=== PATIENT | female | born 1990 | race Caucasian/White ===

== ENCOUNTER 2016-11-24 00:42 | Emergency (ER) | payer SELFPAY ==
[2016-11-24 00:56] VITALS: BP 126/72
[2016-11-24] MEDS ORDERED: Ketorolac 60 MG/2 ML SDV IM ONE (01:00)
[2016-11-24] MEDS ORDERED: traMADol 50 MG Tab PO ONE (01:02)
--- NOTE | 2016-11-25 06:53 | ER ---
DATE SEEN: 11/24/2016 REASON FOR VISIT: Pain in foot. HISTORY OF PRESENT ILLNESS: A 26-year-old female with pain in the left foot for several months. She had a small fracture there. She was told to wear brace, but has not been wearing it. She was tapping today and felt a sharp pain, and pain is worse associated with numbness of the toes. REVIEW OF SYSTEMS: No fever. ALLERGIES: Reviewed. PHYSICAL EXAMINATION: GENERAL: Pleasant. VITAL SIGNS: Afebrile and normotensive. EXTREMITIES: Left foot, no obvious swelling, but there is exquisite and tenderness to palpation of the metatarsals, especially the second and third on the left side. Peripheral pulses are present. IMPRESSION: Metatarsalgia. PLAN: 1. Ketorolac 60 mg IM. 2. Toradol 50 mg t.i.d. p.r.n. 3. Advised to come to the office this week. Elevate and ice it. Return to the ED with any worsening of symptoms. /[id number] GERSON/MAURICE
== END 2016-11-24 01:20 | disposition home or self-care (01) ==
LOC: FB.ED 00:42
DX: M77.42 Metatarsalgia, left foot (principal)
CPT/HCPCS: 96372; 99282; A9270; J1885; 99283

== ENCOUNTER 2017-08-05 00:06 | Emergency (ER) | payer SELFPAY ==
--- NOTE | 2017-08-05 00:26 | EDM.PDOC ---
ED HPI GENERAL MEDICAL PROBLEM - General Stated Complaint: STOMACH PAIN/ Time Seen by Provider: 08/05/17 00:10 Source of Information: Reports: Patient History Limitations: Reports: Language Barrier - History of Present Illness INITIAL COMMENTS - FREE TEXT/NARRATIVE: 27 y.o.w.f came with her friend to the ed due to mid upper abd. pain. pt is 6 weeks . Pain started a few hours after eating. No N/N/D or any other acute medical issue. BP 122/77 pulse 78 RR 16 Pulse ox 99% on RA Temp 36.6 Onset: Today Onset Date: 08/04/17 Onset Time: 18:00 Duration: Hour(s):, Intermittent, Waxing/Waning Location: Reports: Abdomen Quality: Reports: Ache, Burning Severity: Moderate Improves with: Reports: Eating Worsens with: Reports: Rest Associated Symptoms: Reports: Other () mid epigastric Pain Score (Numeric/FACES): 10 - Related Data Allergies Allergy/AdvReac Type Severity Reaction Status Date / Time No Known Allergies Allergy Verified 08/05/17 01:00 Home Meds: Home Meds NK [No Known Home Meds] 11/24/16 [History] Past Medical History - Past Health History Medical/Surgical History: Denies 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: - Past Surgical History Female Surgical History: Reports: Section Social & Family History - Tobacco Use Smoking Status *Q: Never Smoker Second Hand Smoke Exposure: No - Caffeine Use Caffeine Use: Reports: Soda - Alcohol Use Days Per Week of Alcohol Use: 0 - Recreational Drug Use Recreational Drug Use: No ED ROS GENERAL - Review of Systems Review Of Systems: See Below Constitutional: Reports: No Symptoms HEENT: Reports: No Symptoms Respiratory: Reports: No Symptoms Cardiovascular: Reports: No Symptoms Endocrine: Reports: No Symptoms GI/Abdominal: Reports: Abdominal Pain : Reports: No Symptoms Musculoskeletal: Reports: No Symptoms Skin: Reports: No Symptoms Neurological: Reports: No Symptoms Psychiatric: Reports: No Symptoms Hematologic/Lymphatic: Reports: No Symptoms Immunologic: Reports: No Symptoms ED EXAM, GI/ABD - Physical Exam Exam: See Below Exam Limited By: Language Barrier General Appearance: Alert, WD/WN, No Apparent Distress Eyes: Bilateral: Normal Appearance Ears: Normal External Exam Nose: Normal Inspection Throat/Mouth: Normal Inspection, Normal Lips, Normal Teeth Head: Atraumatic, Normocephalic Neck: Normal Inspection, Supple, Non-Tender, Full Range of Motion Respiratory/Chest: No Respiratory Distress, Lungs Clear, Normal Breath Sounds, No Accessory Muscle Use, Chest Non-Tender Cardiovascular: Normal Peripheral Pulses, Regular Rate, Rhythm, No Edema, No Gallop, No JVD, No Murmur GI/Abdominal Exam: Normal Bowel Sounds, Soft, No Organomegaly, Tender ( epigastric) (Female) Exam: Deferred Rectal (Female) Exam: Deferred Back Exam: Normal Inspection, Full Range of Motion Extremities: Normal Inspection, Normal Range of Motion, Non-Tender, No Pedal Edema Neurological: Alert, Oriented, CN II-XII Intact, Normal Cognition, Normal Gait Psychiatric: Normal Affect, Normal Mood Skin Exam: Warm, Dry, Intact, Normal Color, No Rash Lymphatic: No Adenopathy Course - Vital Signs Text/Narrative:: 27 y.o.w.f came with her friend to the ed due to mid upper abd. pain. pt is 6 weeks . Pain started a few hours after eating. No N/N/D or any other acute medical issue. BP 122/77 pulse 78 RR 16 Pulse ox 99% on RA Temp 36.6 PE: Mid upper abd. discomfort to deep palp Impression: as be HPI, epigastric pain Tx: Zofran, Maalox and GI cocktain Reexam: Improved Plan: D/C with instructions. Last Recorded V/S: Last Vital Signs Temp 37.1 C 08/05/17 01:33 Pulse 88 08/05/17 01:33 Resp 17 08/05/17 01:33 BP 118/70 08/05/17 01:33 Pulse Ox 100 08/05/17 01:33 - Orders/Labs/Meds Meds: Medications Discontinued Medications Generic Name Dose Route Start Last Admin Trade Name Freq PRN Reason Stop Dose Admin Al Hydroxide/Mg Hydroxide 30 ml 08/05/17 00:25 08/05/17 00:49 Mag-Al Susp PO 08/05/17 00:26 30 ml ONETIME STA Administration Al Hydroxide/Mg Hydroxide 15 0 ml 08/05/17 01:20 08/05/17 01:23 ml/ Lidocaine HCl 15 ml PO 08/05/17 01:21 15 ml ONETIME STA Administration Ondansetron HCl 4 mg 08/05/17 00:25 08/05/17 00:49 Zofran Odt PO 08/05/17 00:26 4 mg ONETIME STA Administration Departure - Departure Time of Disposition: 01:21 Disposition: Home, Self-Care 01 Condition: Good Clinical Impression: Qualifiers: Weeks of gestation: less than 8 weeks Qualified Code(s): Z3A.01 - Less than 8 weeks gestation of Gastritis Qualifiers: Gastritis type: unspecified gastritis Chronicity: acute - Discharge Information Instructions: Gastritis, Adult, [id number] Referrals: Elan Arteaga MD [Primary Care Provider] - Forms: ED Department Discharge Additional Instructions: Please take Maalox for gastritis/esophagitis, please f/u with your PMD. come back if your symptoms get worse acutely.
[2017-08-05] MEDS: Ondansetron 4 MG Tab.DIS PO STA (00:49)
[2017-08-05] MEDS: Aluminum Hydroxide/Magnesium Hydroxide Susp 30 ML Cup PO STA (00:49)
[2017-08-05] MEDS: Alum Hydroxide/Mag Hydroxide 15 ML, Lidocaine 2% 15 ML PO STA ×2 (01:23)
[2017-08-05 01:34] VITALS: BP 118/70
== END 2017-08-05 01:34 | disposition home or self-care (01) ==
LOC: FB.ED 00:06
DX: O99.611 Diseases of the digestive system complicating pregnancy, first trimester (principal); K29.70 Gastritis, unspecified, without bleeding; Z3A.01 Less than 8 weeks gestation of pregnancy
CPT/HCPCS: 99283; A9270

== ENCOUNTER 2017-09-10 22:07 | Emergency (ER) | payer MEDICAID ==
[2017-09-10] MEDS ORDERED: Ondansetron 8 MG Tab.DIS PO ONE (22:57)
[2017-09-10] MEDS ORDERED: Sodium Chloride 0.9% 1,000 ML IV ONE (23:10)
[2017-09-10] MEDS ORDERED: Ketorolac 30 MG/ML SDV IVPUSH ONE (23:10)
[2017-09-10] MEDS ORDERED: Ondansetron 4 MG Tab.DIS PO ONE (23:40)
--- NOTE | 2017-09-10 23:42 | EDM.PDOC ---
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 female, ABo came to the ed due to vag spotting off/on for 1 week or so. Pt is 2 1/2 months , and lower abd. pain off/on. Pt had a OB pelvic US 1 week ago which was nl. No Dysuria. No trauma. Pt was under pelvic rest for 1 week. Her symptoms improved. However, she is noticing occ blood at the paper when she wipes her area from front to back. At this moment , she has no spotting of blood at her are. She has, however some discomfort at her suprapubic area with nausea. No other acute medical issues. BP 127/78 RR 14 Pulse ox 98% temp 36.8 Pulse 78 Onset Date: 09/10/17 Onset Time: 20:00 Duration: Hour(s):, Intermittent Location: Reports: Pelvis Quality: Reports: Ache (lower abdomen.) Severity: Mild Improves with: Reports: Rest Worsens with: Reports: Movement Context: Reports: Other (vag spotting, 2 1/2 months pregnent, lower abd. 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: - Past Surgical History Female Surgical History: Reports: Section Social & Family History - Family History Family Medical History: Unobtainable - Tobacco Use Smoking Status *Q: Never Smoker Second Hand Smoke Exposure: No - Caffeine Use Caffeine Use: Reports: None - Alcohol Use Days Per Week of Alcohol Use: 0 - Recreational Drug Use Recreational Drug Use: No ED ROS GENERAL - Review of Systems Review Of Systems: See Below Constitutional: Reports: No Symptoms HEENT: Reports: No Symptoms Respiratory: Reports: No Symptoms Cardiovascular: Reports: No Symptoms Endocrine: Reports: No Symptoms GI/Abdominal: Reports: No Symptoms : Reports: No Symptoms Musculoskeletal: Reports: No Symptoms Skin: Reports: No Symptoms Neurological: Reports: No Symptoms Psychiatric: Reports: No Symptoms Hematologic/Lymphatic: Reports: No Symptoms Immunologic: Reports: No Symptoms ED EXAM, GI/ABD - Physical Exam Exam: See Below Exam Limited By: Language Barrier General Appearance: Alert, WD/WN, No Apparent Distress Eyes: Bilateral: Normal Appearance Ears: Normal External Exam, Normal Canal Nose: Normal Inspection, Normal Mucosa, No Blood Throat/Mouth: Normal Inspection, Normal Lips, Normal Teeth Head: Atraumatic, Normocephalic Neck: Normal Inspection, Supple Respiratory/Chest: No Respiratory Distress, Lungs Clear Cardiovascular: Normal Peripheral Pulses, Regular Rate, Rhythm, No Edema GI/Abdominal Exam: Normal Bowel Sounds, Soft, Non-Tender, No Organomegaly (Female) Exam: Normal External Exam Rectal (Female) Exam: Deferred Back Exam: Normal Inspection, Full Range of Motion Extremities: Normal Inspection, Normal Range of Motion, Non-Tender, No Pedal Edema Neurological: Alert, Oriented, CN II-XII Intact, Normal Cognition, Normal Gait, No Motor/Sensory Deficits Psychiatric: Normal Affect Skin Exam: Warm Lymphatic: No Adenopathy Course - Vital Signs Text/Narrative:: 27 y.o. female, ABo came to the ed due to vag spotting off/on for 1 week or so. Pt is 2 1/2 months , and lower abd. pain off/on. Pt had a OB pelvic US 1 week ago which was nl. No Dysuria. No trauma. Pt was under pelvic rest for 1 week. Her symptoms improved. However, she is noticing occ blood at the paper when she wipes her area from front to back. At this moment , she has no spotting of blood at her are. She has, however some discomfort at her suprapubic area with nausea. No other acute medical issues. BP 127/78 RR 14 Pulse ox 98% temp 36.8 Pulse 78 PE: WNWD female with off/on suprapubic dyscofort for 1 week and nausea. FHT unable to obtain Imaging: done 1 week ago: NAD Labs: UA neg for UTI. Job hematuria, however (collection of urine?) Impression: Vag spotting (intermittant) 2.5 m Tx: Zofran Reexam: Improved Plan: D/C with instructions, pelvic rest Last Recorded V/S: Last Vital Signs Temp 36.6 C 09/10/17 22:12 Pulse 83 09/11/17 00:14 Resp 14 09/10/17 22:12 BP 119/67 09/11/17 00:14 Pulse Ox 99 09/10/17 22:12 - Orders/Labs/Meds Labs: Laboratory Tests 09/10/17 Range/Units 22:31 Urine Color Yellow (YELLOW) Urine Appearance Clear (CLEAR) Urine pH 6.0 (5.0-6.5) Ur Specific [place] 1.020 (1.010-1.025) Urine Protein Negative (NEGATIVE) mg/dL Urine Glucose (UA) Normal (NEGATIVE) mg/dL Urine Ketones Negative (NEGATIVE) mg/dL Urine Occult Blood Large H (NEGATIVE) Urine Nitrite Negative (NEGATIVE) Urine Bilirubin Negative (NEGATIVE) Urine Urobilinogen Normal (NEGATIVE) mg/dL Ur Leukocyte Esterase Negative (NEGATIVE) Urine RBC 5-10 (0) Urine WBC 0-5 (0) Ur Epithelial Cells Few Urine Bacteria Rare H (NS) Meds: Medications Discontinued Medications Generic Name Dose Route Start Last Admin Trade Name Freq PRN Reason Stop Dose Admin Sodium Chloride 1,000 mls @ 999 mls/hr 09/10/17 23:10 Normal Saline IV 09/11/17 00:10 .BOLUS ONE Ketorolac Tromethamine 30 mg 09/10/17 23:10 Toradol IVPUSH 09/10/17 23:11 ONETIME ONE Ondansetron HCl 8 mg 09/10/17 22:57 09/10/17 23:01 Zofran Odt PO 09/10/17 22:58 8 mg ONETIME ONE Administration Ondansetron HCl 16 mg 09/10/17 23:40 Zofran Odt PO 09/10/17 23:41 .STK-MED ONE Departure - Departure Time of Disposition: 23:40 Disposition: Home, Self-Care 01 Condition: Good Clinical Impression: Spotting Qualifiers: Weeks of gestation: less than 8 weeks Qualified Code(s): Z3A.01 - Less than 8 weeks gestation of - Discharge Information Instructions: First Trimester of , [id number] Referrals: Nyarandi,Elan M, MD [Primary Care Provider] - Forms: ED Department Discharge Additional Instructions: Please take Zofran for nausea, please f/u, please come back if your symptoms get worse acutely.
[2017-09-11 00:15] VITALS: BP 119/67
== END 2017-09-11 00:15 | disposition home or self-care (01) ==
LOC: FB.ED 22:07
DX: O26.851 Spotting complicating pregnancy, first trimester (principal); Z3A.01 Less than 8 weeks gestation of pregnancy
CPT/HCPCS: 81001; 99284; A9270

== ENCOUNTER 2018-03-12 06:11 | Inpatient (IN) | payer MEDICAID ==
--- NOTE | 2018-03-11 14:40 | PCM.LDHP ---
L&D History of Present Illness - General Date of Service: 03/11/18 Admit Problem/Dx: Patient Status Order with Admit Dx/Problem 03/12/18 06:00 Patient Status [ADT] Routine Admission Diagnosis/Problem Admission Diagnosis/Problem section Source of Information: Patient, Old Records History Limitations: Reports: Language Barrier - History of Present Illness Introduction:: Idalia is a 27 yo female at 39 weeks gestation. Is being admitted for a repeat C section. She had her first lower segment section in 2013 due to non reassuring heart tones. No other previous surgeries. Her current has been complicated by anemia,last hgb is 8.6 g/dl,currently asymptomatic and on iron supplementation. She denies any fever,chills,or urinary symptoms. Her first section( of which I don't have op notes),was reportedly uncomplicated. 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 L&D Exam - Exam Exam: See Below - OB Specific Movement: Active - Exam General: Alert, Oriented HEENT: PERRLA, Conjunctiva Clear, EACs Clear, EOMI, Hearing Intact, Mucosa Moist & [place], Nares Patent, Normal Nasal Septum, Posterior Pharynx Clear, TMs Clear Neck: Supple, Trachea Midline Lungs: Clear to Auscultation, Normal Respiratory Effort Cardiovascular: Regular Rate, Regular Rhythm GI/Abdominal Exam: Normal Bowel Sounds, Soft, Non-Tender, No Organomegaly, No Distention, No Abnormal Bruit, No Mass, Pelvis Stable Rectal Exam: Normal Exam, Normal Rectal Tone Genitourinary: Normal external exam, Normal bimanual exam, Normal speculum exam Back Exam: Normal Inspection, Full Range of Motion Extremities: Normal Inspection, Normal Range of Motion, Non-Tender, No Pedal Edema, Normal Capillary Refill Skin: Warm, Dry, Intact Neurological: Cranial Nerves Intact, Reflexes Equal Bilateral Psychiatric: Alert, Normal Affect, Normal Mood - Problem List (1) SNOMED Code(s): 86672947 ICD Code: Z34.90 - ENCNTR FOR SUPRVSN OF NORMAL , UNSP, UNSP TRIMESTER Status: Acute Qualifiers: Weeks of gestation: 39 weeks Qualified Code(s): Z3A.39 - 39 weeks gestation of (2) Previous section SNOMED Code(s): 720641505 ICD Code: Z98.891 - HISTORY OF UTERINE SCAR FROM PREVIOUS SURGERY Status: Acute (3) Anemia affecting SNOMED Code(s): 74427589 ICD Code: O99.019 - ANEMIA COMPLICATING , UNSPECIFIED TRIMESTER Status: Acute Qualifiers: Trimester: third trimester Qualified Code(s): O99.013 - Anemia complicating , third trimester Problem List Initiated/Reviewed/Updated: Yes Orders Last 24hrs: Active Orders 24 hr Category Date Time Status Patient Status [ADT] Routine ADT 03/12/18 06:00 Active Insert [place] Catheter [Insert Urinary Catheter] [OM.PC] Care 03/12/18 08:00 Ordered Q24H RT Incentive Spirometry [RC] ASDIRECTED Care 03/12/18 06:00 Active Urinary Catheter Assessment [RC] QSHIFT Care 03/11/18 13:41 Active Verify Patient Consent Obtain [RC] ASDIRECTED Care 03/12/18 06:00 Active Nothing Per Oral Diet [DIET] Diet 03/12/18 Breakfast Ordered CBC WITH AUTO DIFF [HEME] Routine Lab 03/12/18 06:00 Ordered TYPE AND SCREEN [BBK] Routine Lab 03/12/18 06:00 Ordered Lactated Ringers [Ringers, Lactated] 1,000 ml Med 03/12/18 06:00 Active IV .BOLUS Lactated Ringers [Ringers, Lactated] 1,000 ml Med 03/12/18 07:00 Active IV ASDIRECTED Sodium Chloride 0.9% [Saline Flush] Med 03/12/18 06:00 Active 10 ml FLUSH ASDIRECTED PRN ceFAZolin [Ancef] Med 03/12/18 07:45 Once 1 gm IV ONETIME ONE Peripheral IV Insertion Adult [OM.PC] Routine Oth 03/12/18 06:00 Ordered Sequential Compression Device [OM.PC] Routine Oth 03/12/18 06:00 Ordered Resuscitation Status Routine Resus Stat 03/11/18 13:32 Ordered Medication Orders Cefazolin Sodium (Ancef) 1 gm IV ONETIME ONE Stop: 03/12/18 07:46 Lactated Ringer's (Ringers, Lactated) 1,000 mls @ 999 mls/hr IV .BOLUS MARIO Lactated Ringer's (Ringers, Lactated) 1,000 mls @ 125 mls/hr IV ASDIRECTED MARIO Sodium Chloride (Saline Flush) 10 ml FLUSH ASDIRECTED PRN PRN Reason: Keep Vein Open Assessment/Plan Comment:: Patient is aware of risks and benefits of the surgical procedure planned, including possibility of blood transfusion. Proceed as planned.
[~2018-03-12 06:11] MED LIST: Lactated Ringers 1,000 ML IV SCH
[2018-03-12] MEDS: Sodium Chloride 0.9% 10 ML Syringe FLUSH PRN ×2 (06:30→10:40)
--- NOTE | 2018-03-12 07:38 | PCM.SN ---
- Free Text/Narrative Note: For c section procedure and risks explained to the pt to include bleeding, infection, injury to bowel, bladder, blood vessel or baby. she expressed understanding and asks us to proceed.
[2018-03-12] MEDS ORDERED: ceFAZolin 1 GM in Sodium Chloride 0.9% 50 ML IV ONE (07:45)
[2018-03-12] MEDS ORDERED: ceFAZolin 1 GM Vial IV ONE ×2 (07:45→08:00)
[2018-03-12] MEDS ORDERED: Citric Acid/Sodium Citrate Solution 30 ML Cup PO ONE (07:51)
[2018-03-12] MEDS ORDERED: Scopolamine 1.5 MG Transdermal Patch TOP ONE (07:51)
[2018-03-12] MEDS ORDERED: Lactated Ringers 1,000 ML IV ONE (08:00)
[2018-03-12] MEDS ORDERED: fentaNYL 100 MCG/2 ML SDV IV ONE (08:00)
[2018-03-12] MEDS ORDERED: HYDROmorphone 2 MG/ML SDV IV ONE (08:00)
[2018-03-12] MEDS ORDERED: Ondansetron 4 MG/2 ML SDV IVPUSH ONE (08:00)
[2018-03-12] MEDS ORDERED: Bupivacaine 0.75%/D5W 2 ML Amp ISPINAL ONE (08:00)
[2018-03-12] MEDS ORDERED: Midazolam 1 MG/ML 2 ML SDV IV ONE (08:00)
[2018-03-12] MEDS ORDERED: Oxytocin 10 Units/1 ML SDV IV ONE ×2 (08:00)
[2018-03-12] MEDS ORDERED: Ondansetron 4 MG/2 ML SDV IV PRN (09:24)
[2018-03-12] MEDS ORDERED: ePHEDrine 50 MG/ML SDV IVPUSH PRN (09:24)
[2018-03-12] MEDS ORDERED: Naloxone 0.4 MG/ML SDV IVPUSH PRN (09:24)
--- NOTE | 2018-03-12 09:24 | PCM.OPNOTE ---
- General Post-Op/Procedure Note Date of Surgery/Procedure: 03/12/18 Operative Procedure(s): c section Findings: term female infant Apgars 8/9 KEVON presentation Pre Op Diagnosis: term infant. hx of previous c section Post-Op Diagnosis: Same Anesthesia Technique: Spinal Primary Surgeon: Jorge Maynard Secondary Surgeon: Elan Arteaga Anesthesia Provider: Srinivas Rich Pathology: placenta Fluid Replacement, Intraop: 1,400 Output, Urine Amount: 300 EBL in mLs: 475 Complications: None Condition: Good Free Text/Narrative:: see dictation
--- NOTE | 2018-03-12 10:00 | OR ---
DATE OF OPERATION: 03/12/2018 SURGEON: Jorge Maynard MD PROCEDURE PERFORMED: section. AIRCRAFT CYLINDER MECHANIC: scheduling assistant was Dr. Arteaga. ANESTHESIOLOGIST: KEITH Arzate. PREOPERATIVE DIAGNOSIS: Term infant, history of previous . POSTOPERATIVE DIAGNOSIS: Term infant, history of previous . INDICATIONS FOR PROCEDURE: This is a 27-year-old female who is at term. This is her second . She had a previous performed in [place]. She presents now for elective section. INTRAOPERATIVE FINDINGS: A term was delivered. scores of 8 and 9 with a KEVON presentation. ESTIMATED BLOOD LOSS: 475 mL. URINE OUTPUT: Approximately 300 mL, and she received approximately 1400 mL of crystal. DESCRIPTION OF PROCEDURE: After an excellent spinal anesthetic was administered, the patient was prepped and draped in the usual sterile manner. An incision was made through the previous incision site with a #10 scalpel blade. The underlying scar tissue was divided using electrocautery. The fascia was exposed and divided starting at the anterior rectus sheath and going laterally over the oblique muscles. This allowed us to grasp the fascia with Edel clamps and create a plane between the fascia, and the rectus muscle both anteriorly and inferiorly. The peritoneum was grasped and incised, and the abdominal cavity was entered. A bladder flap was developed using Metzenbaum scissors and then after creating this, this was retracted. An incision was made through the uterus with a #10 scalpel blade, and the uterus was opened clear. The incision was carried out using blunt dissection. The child's head was then delivered as was the anterior shoulder, posterior shoulder, and the remainder of the . Oropharyngeal airway was suctioned out. Cord was clamped, and the child was passed off the field. Cord blood sample was obtained. The placenta was then delivered after delivering the uterus out of the abdominal cavity. An ABD was used to wipe down the lining of the uterus and then the uterus was then closed in 2 layers with a locking #1 interrupted Vicryl followed by a running Lembert 0 Vicryl. There were two points of bleeding, which were controlled with 2-0 Vicryl. The area was irrigated and after assuring excellent hemostasis, the uterus was delivered to normal anatomic position. After irrigating the pouch, the two lateral gutters were also then irrigated. The fascia was closed with a running 0 Vicryl. After excising the hypertrophic previous scar, the skin was then closed with a running 3-0 Vicryl. Steri-Strips were applied. Needle, sponge, and instrument counts were reported as correct. The patient was taken to Recovery in a good condition. /[id number] /MODL
[2018-03-12] MEDS: Ketorolac 30 MG/ML SDV IVPUSH SCH ×2 (10:37→17:31)
[2018-03-12] MEDS: diphenhydrAMINE 50 MG/ML SDV IVPUSH PRN (10:43)
[2018-03-12] MEDS: Lactated Ringers 1,000 ML IV SCH ×3 (13:20→20:37)
[2018-03-12] MEDS: Nalbuphine 10 MG/1 ML Vial IVPUSH PRN ×2 (17:29→22:48)
[2018-03-13] MEDS: Ketorolac 30 MG/ML SDV IVPUSH SCH ×2 (01:28→09:40)
[2018-03-13] MEDS: Sodium Chloride 0.9% 10 ML Syringe FLUSH PRN ×2 (01:30→03:48)
[2018-03-13] MEDS: diphenhydrAMINE 50 MG/ML SDV IVPUSH PRN (03:48)
[2018-03-13] MEDS: Lactated Ringers 1,000 ML IV SCH (03:51)
[2018-03-13] MEDS: Nalbuphine 10 MG/1 ML Vial IVPUSH PRN ×2 (07:35→18:01)
[2018-03-13] MEDS ORDERED: Bisacodyl 10 MG Supp RECTAL ONE (10:13)
--- NOTE | 2018-03-13 10:22 | PCM.PNPP ---
- General Info Date of Service: 03/13/18 Functional Status: Reports: Pain Controlled, Tolerating Diet, Urinating - Review of Systems HEENT: Reports: No Symptoms Pulmonary: Reports: No Symptoms Gastrointestinal: Reports: Abdominal Pain. Denies: Flatus - Patient Data Vital Signs - Most Recent: Last Vital Signs Temp 97.7 F 03/13/18 08:25 Pulse 79 03/13/18 08:25 Resp 16 03/13/18 08:25 BP 102/65 03/13/18 08:25 Pulse Ox 98 03/13/18 08:25 Weight - Most Recent: 77.564 kg I&O - Last 24 Hours: Intake & Output 03/12/18 03/13/18 03/13/18 22:59 06:59 14:59 Intake Total 1869 1250 Output Total 1500 1300 Balance 369 -50 Lab Results - Last 24 Hours: Laboratory Results - last 24 hr 03/13/18 Range/Units 06:18 WBC 7.5 (4.5-12.0) X10-3/uL RBC 3.23 (3.23-5.20) x10(6)uL Hgb 7.7 L (11.5-15.5) g/dL Hct 23.7 L (30.0-51.3) % MCV 73.4 L (80-96) fL MCH 23.9 L (27.7-33.6) pg MCHC 32.5 (32.2-35.4) g/dL RDW 17.8 H (11.5-15.5) % Plt Count 194 (125-369) X10(3)uL MPV 9.4 (7.4-10.4) fL Neut % (Auto) 69.2 (46-82) % Lymph % (Auto) 22.1 (13-37) % Sibley % (Auto) 6.7 (4-12) % Eos % (Auto) 2 (1.0-5.0) % Baso % (Auto) 1 (0-2) % Neut # (Auto) 5.2 (1.6-8.3) # Lymph # (Auto) 1.7 (0.6-5.0) # Sibley # (Auto) 0.5 (0.0-1.3) # Eos # (Auto) 0.1 (0.0-0.8) # Baso # (Auto) 0.0 (0.0-0.2) # Med Orders - Current: Current Medications Diphenhydramine HCl (Benadryl) 25 mg IVPUSH Q6H PRN PRN Reason: Itching or Nausea Last Admin: 03/13/18 03:48 Dose: 25 mg Ephedrine Sulfate (Ephedrine Sulfate) 5 mg IVPUSH ASDIRECTED PRN PRN Reason: Other Ferrous Sulfate (Ferrous Sulfate) 325 mg PO DAILY [facility] Lactated Ringer's (Ringers, Lactated) 1,000 mls @ 125 mls/hr IV ASDIRECTED MARIO Last Admin: 03/13/18 03:51 Dose: 125 mls/hr Ibuprofen (Motrin) 600 mg PO Q6H PRN PRN Reason: Pain Nalbuphine HCl (Nubain) 10 mg IVPUSH Q6H PRN PRN Reason: Allergies Last Admin: 03/13/18 07:35 Dose: 10 mg Naloxone HCl (Narcan) 0.1 mg IVPUSH ONETIME PRN PRN Reason: Respiratory Depression Ondansetron HCl (Zofran) 4 mg IV Q4H PRN PRN Reason: Nausea/Vomiting Multivit/Folic Acid/Iron (-U) 1 each PO DAILY [facility] Sodium Chloride (Saline Flush) 10 ml FLUSH ASDIRECTED PRN PRN Reason: Keep Vein Open Last Admin: 03/13/18 03:48 Dose: 10 ml Discontinued Medications Bisacodyl (Dulcolax) 10 mg RECTAL ONETIME ONE Stop: 03/13/18 10:14 Bupivacaine HCl/Dextrose (Marcaine 0.75% Spinal) 2 ml ISPINAL .STK-MED ONE Stop: 03/12/18 08:01 Cefazolin Sodium (Ancef) 1 gm IV ONETIME ONE Stop: 03/12/18 07:46 Last Admin: 03/12/18 09:14 Dose: Not Given Cefazolin Sodium (Ancef) 1 gm IV .STK-MED ONE Stop: 03/12/18 08:01 Citric Acid/Sodium Citrate (Bicitra Solution) 30 ml PO ONETIME ONE Stop: 03/12/18 07:52 Last Admin: 03/12/18 09:14 Dose: Not Given Fentanyl (Sublimaze) 100 mcg IV .STK-MED ONE Stop: 03/12/18 08:01 Hydromorphone HCl (Dilaudid) 2 mg IV .STK-MED ONE Stop: 03/12/18 08:01 Cefazolin Sodium 1 gm/ Sodium (Chloride) 50 mls @ 200 mls/hr IV ONETIME ONE Stop: 03/12/18 07:59 Lactated Ringer's (Ringers, Lactated) 1,000 mls @ 999 mls/hr IV .BOLUS MARIO Lactated Ringer's (Ringers, Lactated) 1,000 mls @ as directed IV .STK-MED ONE Stop: 03/12/18 08:01 Ketorolac Tromethamine (Toradol) 30 mg IVPUSH Q8H MARIO Stop: 03/17/18 09:27 Last Admin: 03/13/18 09:40 Dose: 30 mg Midazolam HCl (Versed 1 Mg/Ml) 2 mg IV .STK-MED ONE Stop: 03/12/18 08:01 Ondansetron HCl (Zofran) 4 mg IVPUSH .STK-MED ONE Stop: 03/12/18 08:01 Oxytocin (Pitocin) 10 unit IV .STK-MED ONE Stop: 03/12/18 08:01 Oxytocin (Pitocin) 20 unit IV .STK-MED ONE Stop: 03/12/18 08:01 Scopolamine (Transderm-Scop) 1.5 mg TOP ONETIME ONE Stop: 03/12/18 07:52 Last Admin: 03/12/18 08:00 Dose: 1.5 mg - Infant Interaction Disposition, : at Bedside Support Person: Friend - Recovery Exam Fundal Tone: Firm Fundal Level: At Umbilicus Fundal Placement: Midline Lochia Amount: Moderate Lochia Color: Rubra/Red Bladder Status: Voiding Urinary Elimination: Indwelling Catheter - Exam Lungs: Clear to Auscultation, Normal Respiratory Effort Cardiovascular: Regular Rate, Regular Rhythm GI/Abdominal Exam: Normal Bowel Sounds, Tender (along incision ) Wound/Incisions: No Drainage. No: Erythema - Problem List & Annotations (1) Delivery by section of full-term infant SNOMED Code(s): 531164523 Code(s): O82 - ENCOUNTER FOR DELIVERY WITHOUT INDICATION Status: Acute Current Visit: Yes - Problem List Review Problem List Initiated/Reviewed/Updated: Yes - My Orders Last 24 Hours: My Active Orders 03/12/18 09:24 Ambulate [RC] PER UNIT ROUTINE Intake and Output [RC] 08,12,16,20,00 Wound Care [RC] QSHIFT Naloxone [Narcan] 0.1 mg IVPUSH ONETIME PRN Ondansetron [Zofran] 4 mg IV Q4H PRN diphenhydrAMINE [Benadryl] 25 mg IVPUSH Q6H PRN ePHEDrine [ePHEDrine Sulfate] 5 mg IVPUSH ASDIRECTED PRN Assess Lochia [WOMSER] Per Unit Routine Breast Pump [WOMSER] Per Unit Routine 03/12/18 09:25 Communication Order [RC] Per Unit Routine Communication Order [RC] Per Unit Routine Communication Order [RC] Per Unit Routine Vital Signs [RC] PER UNIT ROUTINE Assess Uterine Involution [WOMSER] Per Unit Routine 03/12/18 09:26 RT Incentive Spirometry [RC] Q2HWA Ice Therapy [OM.PC] Per Unit Routine 03/12/18 17:05 Nalbuphine [Nubain] 10 mg IVPUSH Q6H PRN 03/13/18 10:13 Ibuprofen [Motrin] 600 mg PO Q6H PRN 03/13/18 10:15 DC Willis Catheter [Urinary Catheter Removal] [RC] Per Unit Routine 03/13/18 10:30 Ferrous Sulfate 325 mg PO DAILY Vit/FA/Fe Fumarate [-U] 1 each PO DAILY 03/13/18 Lunch Full Liquid Diet [DIET] - Assessment Assessment:: unremarkable exam - Plan Plan:: doing well sp day one will dc wlilis advance diet to full liquid dulcolox suppository will start vitamin saline lock iv
[2018-03-13] MEDS: Ferrous Sulfate 325 MG Tab PO SCH (10:43)
[2018-03-13] MEDS: Prenatal Multivitamin with Calcium/Folic Acid/Fe Fumarate Cap PO SCH (10:43)
[2018-03-13] MEDS: Ibuprofen 600 MG Tab PO PRN (18:00)
[2018-03-14 01:18] VITALS: BP 119/68
[2018-03-14] MEDS: Nalbuphine 10 MG/1 ML Vial IVPUSH PRN (01:20)
[2018-03-14] MEDS: Sodium Chloride 0.9% 10 ML Syringe FLUSH PRN (01:21)
[2018-03-14] MEDS: Ibuprofen 600 MG Tab PO PRN ×2 (06:50→13:59)
--- NOTE | 2018-03-14 08:45 | PCM.PNPP ---
- General Info Date of Service: 03/14/18 Functional Status: Reports: Pain Controlled, Tolerating Diet, Ambulating, Urinating, Incentive Spirometry - Review of Systems Pulmonary: Reports: No Symptoms Cardiovascular: Reports: No Symptoms Gastrointestinal: Reports: Flatus, Other (bowel movement) Skin: Reports: No Symptoms Neurological: Reports: No Symptoms - Patient Data Vital Signs - Most Recent: Last Vital Signs Temp 97.8 F 03/14/18 00:30 Pulse 82 03/14/18 00:30 Resp 18 03/14/18 00:30 BP 119/68 03/14/18 00:30 Pulse Ox 99 03/14/18 00:30 Weight - Most Recent: 77.564 kg Med Orders - Current: Current Medications Diphenhydramine HCl (Benadryl) 25 mg IVPUSH Q6H PRN PRN Reason: Itching or Nausea Last Admin: 03/13/18 03:48 Dose: 25 mg Ephedrine Sulfate (Ephedrine Sulfate) 5 mg IVPUSH ASDIRECTED PRN PRN Reason: Other Ferrous Sulfate (Ferrous Sulfate) 325 mg PO DAILY [facility] Last Admin: 03/13/18 10:43 Dose: 325 mg Lactated Ringer's (Ringers, Lactated) 1,000 mls @ 125 mls/hr IV ASDIRECTED MARIO Last Admin: 03/13/18 03:51 Dose: 125 mls/hr Ibuprofen (Motrin) 600 mg PO Q6H PRN PRN Reason: Pain Last Admin: 03/14/18 06:50 Dose: 600 mg Nalbuphine HCl (Nubain) 10 mg IVPUSH Q6H PRN PRN Reason: Allergies Last Admin: 03/14/18 01:20 Dose: 10 mg Naloxone HCl (Narcan) 0.1 mg IVPUSH ONETIME PRN PRN Reason: Respiratory Depression Ondansetron HCl (Zofran) 4 mg IV Q4H PRN PRN Reason: Nausea/Vomiting Multivit/Folic Acid/Iron (-U) 1 each PO DAILY [facility] Last Admin: 03/13/18 10:43 Dose: 1 each Sodium Chloride (Saline Flush) 10 ml FLUSH ASDIRECTED PRN PRN Reason: Keep Vein Open Last Admin: 03/14/18 01:21 Dose: 10 ml Discontinued Medications Bisacodyl (Dulcolax) 10 mg RECTAL ONETIME ONE Stop: 03/13/18 10:14 Last Admin: 03/13/18 10:43 Dose: 10 mg Bupivacaine HCl/Dextrose (Marcaine 0.75% Spinal) 2 ml ISPINAL .STK-MED ONE Stop: 03/12/18 08:01 Cefazolin Sodium (Ancef) 1 gm IV ONETIME ONE Stop: 03/12/18 07:46 Last Admin: 03/12/18 09:14 Dose: Not Given Cefazolin Sodium (Ancef) 1 gm IV .STK-MED ONE Stop: 03/12/18 08:01 Citric Acid/Sodium Citrate (Bicitra Solution) 30 ml PO ONETIME ONE Stop: 03/12/18 07:52 Last Admin: 03/12/18 09:14 Dose: Not Given Fentanyl (Sublimaze) 100 mcg IV .STK-MED ONE Stop: 03/12/18 08:01 Hydromorphone HCl (Dilaudid) 2 mg IV .STK-MED ONE Stop: 03/12/18 08:01 Cefazolin Sodium 1 gm/ Sodium (Chloride) 50 mls @ 200 mls/hr IV ONETIME ONE Stop: 03/12/18 07:59 Lactated Ringer's (Ringers, Lactated) 1,000 mls @ 999 mls/hr IV .BOLUS MARIO Lactated Ringer's (Ringers, Lactated) 1,000 mls @ as directed IV .STK-MED ONE Stop: 03/12/18 08:01 Ketorolac Tromethamine (Toradol) 30 mg IVPUSH Q8H MARIO Stop: 03/17/18 09:27 Last Admin: 03/13/18 09:40 Dose: 30 mg Midazolam HCl (Versed 1 Mg/Ml) 2 mg IV .STK-MED ONE Stop: 03/12/18 08:01 Ondansetron HCl (Zofran) 4 mg IVPUSH .STK-MED ONE Stop: 03/12/18 08:01 Oxytocin (Pitocin) 10 unit IV .STK-MED ONE Stop: 03/12/18 08:01 Oxytocin (Pitocin) 20 unit IV .STK-MED ONE Stop: 03/12/18 08:01 Scopolamine (Transderm-Scop) 1.5 mg TOP ONETIME ONE Stop: 03/12/18 07:52 Last Admin: 03/12/18 08:00 Dose: 1.5 mg - Infant Interaction Disposition, : at Bedside Support Person: Friend - Recovery Exam Fundal Tone: Firm Fundal Level: At Umbilicus Fundal Placement: Midline Lochia Amount: Small Lochia Color: Rubra/Red Bladder Status: Voiding Urinary Elimination: Indwelling Catheter - Exam General: Alert, Cooperative, No Acute Distress Lungs: Clear to Auscultation, Normal Respiratory Effort Cardiovascular: Regular Rate, Regular Rhythm GI/Abdominal Exam: Normal Bowel Sounds, Soft, Non-Tender Skin: Warm, Dry, Intact Wound/Incisions: Healing Well, No Drainage. No: Erythema - Problem List & Annotations (1) Delivery by section of full-term infant SNOMED Code(s): 012682265 Code(s): O82 - ENCOUNTER FOR DELIVERY WITHOUT INDICATION Status: Acute Current Visit: Yes - Problem List Review Problem List Initiated/Reviewed/Updated: Yes - My Orders Last 24 Hours: My Active Orders 03/13/18 10:13 Ibuprofen [Motrin] 600 mg PO Q6H PRN 03/13/18 10:22 Convert IV to Saline Lock [OM.PC] Routine 03/13/18 10:30 Ferrous Sulfate 325 mg PO DAILY Vit/FA/Fe Fumarate [-U] 1 each PO DAILY 03/13/18 11:00 May Shower [RC] ASDIRECTED 03/13/18 Dinner Regular Diet [DIET] 03/14/18 08:43 Ready for Discharge [RC] PER UNIT ROUTINE - Assessment Assessment:: POD#2 ready for discharge pt would like to go home as well. - Plan Plan:: See discharge instructions/plan
--- NOTE | 2018-03-14 08:50 | PCM.DCSUM1 ---
Discharge Summary - Hospital Course Free Text/Narrative:: Pt admitted and underwent an unremarkable elective c section. Post operative course was unremarkable. On DOS was started on clear liquids. [place] was removed on pod#1, with the return of flatus was started on a regular diet. Pain has been controlled by motrin. She has showered and expressed a desire to go home on POD#2 there are no clinical reasons not to. - Discharge Data Discharge Date: 03/14/18 Discharge Disposition: Home, Self-Care 01 Condition: Good - Discharge Diagnosis/Problem(s) (1) Delivery by section of full-term SNOMED Code(s): 639820495 ICD Code: O82 - ENCOUNTER FOR DELIVERY WITHOUT INDICATION Status: Acute Current Visit: Yes - Patient Summary/Data Operative Procedure(s) Performed: c section Complications: none - Patient Instructions Diet: Usual Diet as Tolerated, No Alcoholic Beverages Activity: No Lifting Over 25 Pounds, No Strenuous Activities, Rest and Relax Today Driving: Do Not Drive Showering/Bathing: May Shower Notify Provider of: Fever, Swelling and Redness, Drainage - Discharge Plan *PRESCRIPTION DRUG MONITORING PROGRAM REVIEWED*: No *COPY OF PRESCRIPTION DRUG MONITORING REPORT IN PATIENT LILIA: No Prescriptions/Med Rec: Ibuprofen [Motrin] 600 mg PO Q6H PRN #28 tab PRN Reason: Pain Home Medications: Home Meds Ferrous Sulfate [Iron] 325 mg PO DAILY 03/12/18 [History] [id number]/Iron Fumarate/FA/DSS [ 19 Tablet] 1 each PO DAILY 03/12/18 [ History] Ibuprofen [Motrin] 600 mg PO Q6H PRN #28 tab 03/14/18 [Rx] Patient Handouts: Shaken Baby Syndrome, , Jaundice, [place], Taking Your Child's Temperature, Rooming-In With Your [place], Colic, Easy-to- Read, Ibuprofen Dosage Chart, Pediatric, Baby Blues, Baby Safe Sleeping Information, How to Prepare Formula, CPR, Infant, Acetaminophen Dosage Chart, Pediatric, Delivery, Care After, Baby Care, Home Care Instructions for Mom, SIDS Prevention Information, [id number], Tips for a Good Latch, Secondhand Smoke, Rear-Facing Child Safety Seat Referrals: Jorge Maynard MD [Physician] - 03/18/18 (follow up ) - Discharge Summary/Plan Comment DC Time >30 min.: No - Patient Data Vitals - Most Recent: Last Vital Signs Temp 97.8 F 03/14/18 00:30 Pulse 82 03/14/18 00:30 Resp 18 03/14/18 00:30 BP 119/68 03/14/18 00:30 Pulse Ox 99 03/14/18 00:30 Weight - Most Recent: 77.564 kg Med Orders - Current: Current Medications Diphenhydramine HCl (Benadryl) 25 mg IVPUSH Q6H PRN PRN Reason: Itching or Nausea Last Admin: 03/13/18 03:48 Dose: 25 mg Ephedrine Sulfate (Ephedrine Sulfate) 5 mg IVPUSH ASDIRECTED PRN PRN Reason: Other Ferrous Sulfate (Ferrous Sulfate) 325 mg PO DAILY [facility] Last Admin: 03/13/18 10:43 Dose: 325 mg Lactated Ringer's (Ringers, Lactated) 1,000 mls @ 125 mls/hr IV ASDIRECTED [facility] Last Admin: 03/13/18 03:51 Dose: 125 mls/hr Ibuprofen (Motrin) 600 mg PO Q6H PRN PRN Reason: Pain Last Admin: 03/14/18 06:50 Dose: 600 mg Nalbuphine HCl (Nubain) 10 mg IVPUSH Q6H PRN PRN Reason: Allergies Last Admin: 03/14/18 01:20 Dose: 10 mg Naloxone HCl (Narcan) 0.1 mg IVPUSH ONETIME PRN PRN Reason: Respiratory Depression Ondansetron HCl (Zofran) 4 mg IV Q4H PRN PRN Reason: Nausea/Vomiting Multivit/Folic Acid/Iron (-U) 1 each PO DAILY [facility] Last Admin: 03/13/18 10:43 Dose: 1 each Sodium Chloride (Saline Flush) 10 ml FLUSH ASDIRECTED PRN PRN Reason: Keep Vein Open Last Admin: 03/14/18 01:21 Dose: 10 ml Discontinued Medications Bisacodyl (Dulcolax) 10 mg RECTAL ONETIME ONE Stop: 03/13/18 10:14 Last Admin: 03/13/18 10:43 Dose: 10 mg Bupivacaine HCl/Dextrose (Marcaine 0.75% Spinal) 2 ml ISPINAL .STK-MED ONE Stop: 03/12/18 08:01 Cefazolin Sodium (Ancef) 1 gm IV ONETIME ONE Stop: 03/12/18 07:46 Last Admin: 03/12/18 09:14 Dose: Not Given Cefazolin Sodium (Ancef) 1 gm IV .STK-MED ONE Stop: 03/12/18 08:01 Citric Acid/Sodium Citrate (Bicitra Solution) 30 ml PO ONETIME ONE Stop: 03/12/18 07:52 Last Admin: 03/12/18 09:14 Dose: Not Given Fentanyl (Sublimaze) 100 mcg IV .STK-MED ONE Stop: 03/12/18 08:01 Hydromorphone HCl (Dilaudid) 2 mg IV .STK-MED ONE Stop: 03/12/18 08:01 Cefazolin Sodium 1 gm/ Sodium (Chloride) 50 mls @ 200 mls/hr IV ONETIME ONE Stop: 03/12/18 07:59 Lactated Ringer's (Ringers, Lactated) 1,000 mls @ 999 mls/hr IV .BOLUS MARIO Lactated Ringer's (Ringers, Lactated) 1,000 mls @ as directed IV .STK-MED ONE Stop: 03/12/18 08:01 Ketorolac Tromethamine (Toradol) 30 mg IVPUSH Q8H MARIO Stop: 03/17/18 09:27 Last Admin: 03/13/18 09:40 Dose: 30 mg Midazolam HCl (Versed 1 Mg/Ml) 2 mg IV .STK-MED ONE Stop: 03/12/18 08:01 Ondansetron HCl (Zofran) 4 mg IVPUSH .STK-MED ONE Stop: 03/12/18 08:01 Oxytocin (Pitocin) 10 unit IV .STK-MED ONE Stop: 03/12/18 08:01 Oxytocin (Pitocin) 20 unit IV .STK-MED ONE Stop: 03/12/18 08:01 Scopolamine (Transderm-Scop) 1.5 mg TOP ONETIME ONE Stop: 03/12/18 07:52 Last Admin: 03/12/18 08:00 Dose: 1.5 mg
[2018-03-14] MEDS: Ferrous Sulfate 325 MG Tab PO SCH (09:19)
[2018-03-14] MEDS: Prenatal Multivitamin with Calcium/Folic Acid/Fe Fumarate Cap PO SCH (09:19)
== END 2018-03-14 14:45 | disposition home or self-care (01) | DRG 766 ==
LOC: FB.OB 06:11
PROVIDERS: ADMIT Family Medicine; ATTEND Surgery
PROC: 10D00Z1 Extraction of Products of Conception, Low, Open Approach (ICD-10-PCS; principal; 2018-03-12)
PROC: 6A550ZT Pheresis of Cord Blood Stem Cells, Single (ICD-10-PCS; 2018-03-12)
DX: O34.211 Maternal care for low transverse scar from previous cesarean delivery (principal); N85.8 Other specified noninflammatory disorders of uterus; O99.02 Anemia complicating childbirth; Z3A.39 39 weeks gestation of pregnancy; Z37.0 Single live birth; O99.013 Anemia complicating pregnancy, third trimester
CPT/HCPCS: 01961-QZ; 36415; 85025; 86850; 86900; 86901; 94150; A9270-GY; J0690; J1170; J1200; J1885; J2250; J2300; J2405; J2590; J3010; J7050; J7120

== ENCOUNTER 2018-09-20 23:47 | Emergency (ER) | payer MEDICAID, OTHER ==
--- NOTE | 2018-09-21 00:13 | EDM.PDOC ---
ED HPI GENERAL MEDICAL PROBLEM - General Stated Complaint: BLEEDING Time Seen by Provider: 09/20/18 23:48 Source of Information: Reports: Patient History Limitations: Reports: No Limitations - History of Present Illness INITIAL COMMENTS - FREE TEXT/NARRATIVE: estimated 13.5 weeks gestation with hx of indeterminate LMP but was told 1-2 weeks ago after US that she was "3 months along (which with calculation- 3x 4.5 wk/month = 13.5 weeks ie. she now is in the 2nd trimester) No history of lifting , intercourse since the last month, or other unusual activity or fever, chills, frequency urgency. 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: Hematologic History: Reports: Anemia, Other (See Below) Other Hematologic History: during pregnancies - Past Surgical History Head Surgeries/Procedures: Reports: None Female Surgical History: Reports: Section Social & Family History - Family History Family Medical History: Unobtainable - Caffeine Use Caffeine Use: Reports: Soda ED ROS GENERAL - Review of Systems Review Of Systems: See Below Constitutional: Reports: No Symptoms HEENT: Reports: No Symptoms Respiratory: Reports: No Symptoms Cardiovascular: Reports: No Symptoms Endocrine: Reports: No Symptoms GI/Abdominal: Reports: No Symptoms : Reports: Other (Vaginal bleeding) Musculoskeletal: Reports: No Symptoms Skin: Reports: No Symptoms Neurological: Reports: No Symptoms Psychiatric: Reports: No Symptoms Hematologic/Lymphatic: Reports: No Symptoms Immunologic: Reports: No Symptoms ED EXAM, GENERAL - Physical Exam Exam: See Below Free Text/Narrative:: This pleasant 28-year-old woman was attended by another female friend is well muscled well-nourished and in mild distress more anxious. She has mild lower abdominal discomfort.. Exam Limited By: No Limitations General Appearance: Alert, Mild Distress Eye Exam: Bilateral Eye: Normal Inspection Ears: Normal External Exam, Normal Canal, Hearing Grossly Normal, Normal TMs Ear Exam: Bilateral Ear: Auricle Normal, Canal Normal, TM normal Nose: Normal Inspection Throat/Mouth: Normal Inspection, Normal Lips, Normal Teeth, Normal Gums, Normal Oropharynx, Normal Voice, No Airway Compromise Head: Atraumatic, Normocephalic Neck: Normal Inspection, Supple, Non-Tender, Full Range of Motion, Other (No thyromegaly) Respiratory/Chest: No Respiratory Distress, Lungs Clear, Normal Breath Sounds, No Accessory Muscle Use, Chest Non-Tender Cardiovascular: Normal Peripheral Pulses, Regular Rate, Rhythm, No Edema, No Gallop, No JVD, No Murmur, No Rub Peripheral Pulses: 1+: Radial (L), Radial (R) GI/Abdominal: Normal Bowel Sounds, Soft, Other (Low suprapubic discomfort gravid uterus palpable suprapubic region) (Female) Exam: Deferred Rectal (Female) Exam: Deferred Back Exam: Normal Inspection, Other (No CVA tenderness) Extremities: Normal Inspection, Normal Range of Motion, Non-Tender, No Pedal Edema, Normal Capillary Refill Neurological: Alert, Oriented, CN II-XII Intact, Normal Cognition, Normal Gait, Normal Reflexes, No Motor/Sensory Deficits Psychiatric: Normal Affect, Normal Mood Skin Exam: Warm, Dry, Intact, Normal Color, No Rash Course - Vital Signs Last Recorded V/S: Last Vital Signs Temp 36.9 C 09/20/18 23:47 Pulse 98 09/20/18 23:47 Resp 18 09/20/18 23:47 BP 112/74 09/20/18 23:47 Pulse Ox 97 09/20/18 23:47 - Orders/Labs/Meds Labs: Laboratory Tests 09/20/18 Range/Units 23:57 Urine Color Red (YELLOW) Urine Appearance Clear (CLEAR) Urine pH 6.5 (5.0-6.5) Ur Specific [place] 1.005 L (1.010-1.025) Urine Protein Negative (NEGATIVE) mg/dL Urine Glucose (UA) Normal (NORMAL) mg/dL Urine Ketones Negative (NEGATIVE) mg/dL Urine Occult Blood Large H (NEGATIVE) Urine Nitrite Negative (NEGATIVE) Urine Bilirubin Negative (NEGATIVE) Urine Urobilinogen Normal (NEGATIVE) mg/dL Ur Leukocyte Esterase Negative (NEGATIVE) Urine RBC 30-40 H (0-5) Urine WBC 0-5 (0-5) Ur Squamous Epith Cells Occasional (NS,R,O) Urine Bacteria Rare H (NS) Departure - Departure Time of Disposition: :45 (Since she had 3 months gestation on the basis of ultrasound patient currently is approximately 13.5 weeks gestation, well into her second trimester. She has second trimester bleed. Minimal blood loss. Quick look ultrasound was normal no suggestion of any placental disruption/ previa or abruptio.) Disposition: Home, Self-Care 01 Clinical Impression: Second trimester bleeding Qualifiers: Weeks of gestation: 39 weeks Qualified Code(s): Z3A.39 - 39 weeks gestation of - Discharge Information *PRESCRIPTION DRUG MONITORING PROGRAM REVIEWED*: Not Applicable *COPY OF PRESCRIPTION DRUG MONITORING REPORT IN PATIENT LILIA: Not Applicable Instructions: Vaginal Bleeding During , Second Trimester Referrals: Elan Arteaga MD [Primary Care Provider] - Forms: ED Department Discharge Additional Instructions: Quick ultrasound tonight in the ED demonstrates a viable healthy baby. There was no suggestion of any placental separation-placenta previa or abruption. Presently you are in the beginning of your second trimester. Tomorrow follow up with a call to Dr. Sheikh so either he or his nurse can arrange for a formal ultrasound to evaluate her placenta. Annalee I did not see any placental separation called either abruptio placenta or placenta previa. Is not unusual to have bleeding in the first trimester bleeding in the beginning of the second trimester is less common. For the next week Do not engage in heavy lifting or hard work. Tomorrow relax an limit your activities to minimal lifting working walking etc. Rest and did not overexert yourself
[2018-09-21 03:44] VITALS: BP 112/74
== END 2018-09-21 00:26 | disposition home or self-care (01) ==
LOC: FB.ED 23:47
DX: O20.9 Hemorrhage in early pregnancy, unspecified (principal); Z3A.13 13 weeks gestation of pregnancy
CPT/HCPCS: 81001; 99283; 99284

== ENCOUNTER 2018-09-27 10:13 | Emergency (ER) | payer MEDICAID, OTHER ==
[2018-09-27] MEDS ORDERED: Ondansetron 4 MG/2 ML SDV IVPUSH ONE (10:42)
[2018-09-27] MEDS ORDERED: Sodium Chloride 0.9% 1,000 ML IV ONE (10:42)
--- NOTE | 2018-09-27 10:42 | EDM.PDOC ---
ED HPI GENERAL MEDICAL PROBLEM - General Stated Complaint: STOMACH PAIN Time Seen by Provider: 09/27/18 10:15 Source of Information: Reports: Patient - History of Present Illness INITIAL COMMENTS - FREE TEXT/NARRATIVE: pt at 12 weeks gestation with EDC on sep , c/o epigastric pain along with nauea / emesis, and watery diarhea since early this morning, pt denies fever, chills or any other associated sx or concerns. 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 Denies: Bloody Stool, Hematemesis, Hematochezia, Melena Musculoskeletal: Reports: No Symptoms Skin: Reports: No Symptoms ED EXAM, GENERAL - Physical Exam Exam: See Below Exam Limited By: No Limitations General Appearance: Alert Nose: Normal Inspection Throat/Mouth: Other (dry oral mucosa noted. ) Head: Atraumatic Neck: Normal Inspection, Supple, Non-Tender Respiratory/Chest: No Respiratory Distress, Lungs Clear Cardiovascular: Normal Peripheral Pulses, Regular Rate, Rhythm, No Edema GI/Abdominal: Normal Bowel Sounds, Soft, No Distention, Other (tender over the epigastric but no repound. ) Course - Vital Signs Text/Narrative:: labs results were explained to pt. pt is comfortable after gi cocktail. pt has UTI and reflex some gastritis / clinically. she is stable for discharge . pt to follow with PCP . Rx given was for macrobid, pt also was asked to start OTC prilosec. - Orders/Labs/Meds Orders: Active Orders 24 hr Category Date Time Status CULTURE URINE [RM] Routine Lab 09/27/18 11:19 Received Sodium Chloride 0.9% [Normal Saline] 1,000 ml Med 09/27/18 10:42 Active IV .BOLUS Medication Orders Sodium Chloride (Normal Saline) 1,000 mls @ 999 drops/hr IV .BOLUS ONE Stop: 09/28/18 01:42 Last Admin: 09/27/18 11:10 Dose: 999 drops/hr Labs: Laboratory Tests 09/27/18 09/27/18 09/27/18 Range/Units 10:55 10:55 11:19 WBC 8.5 (4.5-12.0) X10-3/uL RBC 4.11 (3.23-5.20) x10(6)uL Hgb 11.2 L (11.5-15.5) g/dL Hct 32.9 (30.0-51.3) % MCV 80.1 (80-96) fL MCH 27.3 L (27.7-33.6) pg MCHC 34.1 (32.2-35.4) g/dL RDW 15.1 (11.5-15.5) % Plt Count 275 (125-369) X10(3)uL MPV 8.5 (7.4-10.4) fL Add Manual Diff Yes Neutrophils % (Manual) 91 H (46-82) % Lymphocytes % (Manual) 5 L (13-37) % Monocytes % (Manual) 4 (4-12) % Sodium 133 L (135-145) mmol/L Potassium 3.7 (3.5-5.3) mmol/L Chloride 98 L (100-110) mmol/L Carbon Dioxide 24 (21-32) mmol/L BUN 3 L (7-18) mg/dL Creatinine 0.7 (0.55-1.02) mg/dL Est Cr Clr Drug Dosing TNP Estimated GFR (MDRD) > 60 (>60) BUN/Creatinine Ratio 4.3 L (9-20) Glucose 98 (80-116) mg/dL Calcium 8.7 (8.6-10.2) mg/dL Total Bilirubin 0.2 (0.1-1.3) mg/dL AST 15 D (5-25) IU/L ALT 16 D (12-36) U/L Alkaline Phosphatase 88 (56-112) IU/L Total Protein 7.6 (6.0-8.0) g/dL Albumin 2.7 L (3.5-5.2) g/dL Globulin 4.9 g/dL Albumin/Globulin Ratio 0.6 Amylase 85 (25-115) U/L Urine Color Yellow (YELLOW) Urine Appearance Cloudy (CLEAR) Urine pH 5.0 (5.0-6.5) Ur Specific [place] 1.020 (1.010-1.025) Urine Protein Negative (NEGATIVE) mg/dL Urine Glucose (UA) Normal (NORMAL) mg/dL Urine Ketones Negative (NEGATIVE) mg/dL Urine Occult Blood Large H (NEGATIVE) Urine Nitrite Negative (NEGATIVE) Urine Bilirubin Negative (NEGATIVE) Urine Urobilinogen Normal (NEGATIVE) mg/dL Ur Leukocyte Esterase Large H (NEGATIVE) Urine RBC 10-20 H (0-5) Urine WBC 50-75 H (0-5) Ur Squamous Epith Cells Moderate H (NS,R,O) Urine Bacteria Many H (NS) Meds: Medications Generic Name Dose Route Start Last Admin Trade Name Freq PRN Reason Stop Dose Admin Sodium Chloride 1,000 mls @ 999 drops/hr 09/27/18 10:42 09/27/18 11:10 Normal Saline IV 09/28/18 01:42 999 drops/hr .BOLUS ONE Administration Discontinued Medications Generic Name Dose Route Start Last Admin Trade Name Freq PRN Reason Stop Dose Admin Ondansetron HCl 4 mg 09/27/18 10:42 09/27/18 11:11 Zofran IVPUSH 09/27/18 10:43 4 mg ONETIME ONE Administration Departure - Departure Time of Disposition: 12:40 Disposition: Home, Self-Care 01 Clinical Impression: UTI (urinary tract infection) - Discharge Information Referrals: Elan Arteaga MD [Primary Care Provider] - - My Orders Last 24 Hours: My Active Orders 09/27/18 10:42 Sodium Chloride 0.9% [Normal Saline] 1,000 ml IV .BOLUS 09/27/18 11:19 CULTURE URINE [RM] Routine - Assessment/Plan Last 24 Hours: My Active Orders 09/27/18 10:42 Sodium Chloride 0.9% [Normal Saline] 1,000 ml IV .BOLUS 09/27/18 11:19 CULTURE URINE [RM] Routine
[2018-09-27] MEDS ORDERED: Alum Hydroxide/Mag Hydroxide 15 ML, Lidocaine 2% 15 ML PO ONE ×2 (12:45)
[2018-09-27 20:06] VITALS: BP 105/66
== END 2018-09-27 13:24 | disposition home or self-care (01) ==
LOC: FB.ED 10:13
DX: O23.41 Unspecified infection of urinary tract in pregnancy, first trimester (principal); O99.611 Diseases of the digestive system complicating pregnancy, first trimester; K21.9 Gastro-esophageal reflux disease without esophagitis; K29.70 Gastritis, unspecified, without bleeding; Z3A.12 12 weeks gestation of pregnancy
CPT/HCPCS: 36415; 80053; 81001; 82150; 85025; 87086; 87088; 87186; 96361; 96374; 99284; A9270; J2405; J7030

== ENCOUNTER 2018-09-27 14:24 | Observation (INO) | payer MEDICAID, OTHER ==
[2018-09-27] MEDS ORDERED: Pantoprazole 40 MG Vial IVPUSH ONE (14:43)
[2018-09-27] MEDS ORDERED: cefTRIAXone 1 GM in Sodium Chloride 0.9% 50 ML IV SCH (14:45)
[2018-09-27] MEDS: Sodium Chloride 0.9% 10 ML Syringe FLUSH PRN ×5 (15:25→20:59)
[2018-09-27] MEDS ORDERED: Pneumococcal Polyvalent-23 Vaccine 0.5 ML SDV IM ONE (16:01)
[2018-09-27] MEDS: Lactated Ringers 1,000 ML IV SCH (16:06)
[2018-09-27] MEDS: Ondansetron 4 MG/2 ML SDV IVPUSH PRN ×2 (16:14→21:02)
[2018-09-27] MEDS ORDERED: Morphine 2 MG/ML Syringe IVPUSH PRN (18:03)
--- NOTE | 2018-09-27 18:06 | PCM.HP ---
H&P History of Present Illness - General Date of Service: 09/27/18 Admit Problem/Dx: Admission Diagnosis/Problem Admission Diagnosis/Problem Epigastric pain Source of Information: Patient History Limitations: Reports: No Limitations - History of Present Illness Initial Comments - Free Text/Narative: Epigastric pain x 12 hrs. Radiating to the back. Sudden onset,04/21,associated with nausea,emesis and diarrhea.Recent C section,and also currently at 14 weeks. Had some bleeding last week. No more bleeding.She was in the ER early today,was diagnosed with a UTI. Given a GI cocktail,no improvement. Anna denies any fever,SOB or URI symptoms. MID EPIGASTRIC AND RADIATES AROUND BOTH SIDE TO THE BACK. 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/BYN History: HAD 2 C-SECTIONS Neurological History: Reports: Migraines Hematologic History: Reports: Anemia, Other (See Below) Other Hematologic History: during pregnancies - Infectious Disease History Infectious Disease History: Reports: Chicken Pox - Past Surgical History Head Surgeries/Procedures: Reports: None Female Surgical History: Reports: Section Neurological Surgical History: Reports: None Social & Family History - Family History Family Medical History: Unobtainable - Tobacco Use Smoking Status *Q: Never Smoker Second Hand Smoke Exposure: No - Caffeine Use Caffeine Use: Reports: Coffee, Soda - Recreational Drug Use Recreational Drug Use: No H&P Review of Systems - Review of Systems: Review Of Systems: ROS reveals no pertinent complaints other than HPI. Exam - Exam Exam: See Below - Vital Signs Vital Signs: Last Vital Signs Temp 98.4 F 09/27/18 14:50 Pulse 122 H 09/27/18 14:50 Resp 18 09/27/18 14:50 BP 103/70 09/27/18 14:50 Pulse Ox 99 09/27/18 14:50 Weight: 69.91 kg - Exam General: Alert, Oriented, 4 HEENT: PERRLA, Hearing Intact, Mucosa Moist & [place], Nares Patent, Normal Nasal Septum, Posterior Pharynx Clear, Conjunctiva Clear, EOMI, EACs Clear, TMs Clear Neck: Supple, Trachea Midline, 2 Lungs: Clear to Auscultation, Normal Respiratory Effort Cardiovascular: Regular Rate, Regular Rhythm GI/Abdominal Exam: Tender (Female) Exam: Deferred Rectal (Female) Exam: Deferred Back Exam: Normal Inspection, Full Range of Motion, NT Extremities: Normal Inspection, Normal Range of Motion, Non-Tender, No Pedal Edema, Normal Capillary Refill Skin: Warm, Dry, Intact Neurological: Cranial Nerves Intact, Reflexes Equal Bilateral Neuro Extensive - Mental Status: Alert, Oriented x3, Normal Mood/Affect, Normal Cognition Neuro Extensive - Motor, Sensory, Reflexes: CN II-XII Intact, Normal Gait, Normal Reflexes Psychiatric: Alert, Normal Affect, Normal Mood - Patient Data Lab Results Last 24 hrs: Laboratory Results - last 24 hr 09/27/18 09/27/18 Range/Units 15:31 15:31 WBC 6.9 (4.5-12.0) X10-3/uL RBC 3.98 (3.23-5.20) x10(6)uL Hgb 10.9 L (11.5-15.5) g/dL Hct 31.7 (30.0-51.3) % MCV 79.6 L (80-96) fL MCH 27.3 L (27.7-33.6) pg MCHC 34.3 (32.2-35.4) g/dL RDW 15.2 (11.5-15.5) % Plt Count 260 (125-369) X10(3)uL MPV 8.6 (7.4-10.4) fL Add Manual Diff Yes Neutrophils % (Manual) 81 (46-82) % Band Neutrophils % 2 (0-6) % Lymphocytes % (Manual) 12 L (13-37) % Monocytes % (Manual) 5 (4-12) % Sodium 135 (135-145) mmol/L Potassium 3.3 L (3.5-5.3) mmol/L Chloride 100 (100-110) mmol/L Carbon Dioxide 23 (21-32) mmol/L BUN 3 L (7-18) mg/dL Creatinine 0.7 (0.55-1.02) mg/dL Est Cr Clr Drug Dosing 94.63 mL/min Estimated GFR (MDRD) > 60 (>60) BUN/Creatinine Ratio 4.3 L (9-20) Glucose 95 (80-116) mg/dL Calcium 8.2 L (8.6-10.2) mg/dL Total Bilirubin 0.2 (0.1-1.3) mg/dL AST 14 (5-25) IU/L ALT 15 (12-36) U/L Alkaline Phosphatase 76 (56-112) IU/L Total Protein 7.2 (6.0-8.0) g/dL Albumin 2.6 L (3.5-5.2) g/dL Globulin 4.6 g/dL Albumin/Globulin Ratio 0.6 Amylase 81 (25-115) U/L Result Diagrams: 09/28/18 06:25 09/28/18 06:25 - Problem List (1) Epigastric abdominal pain SNOMED Code(s): 24267777 ICD Code: R10.13 - EPIGASTRIC PAIN Status: Acute Current Visit: Yes (2) UTI (urinary tract infection) SNOMED Code(s): 79067901 ICD Code: N39.0 - URINARY TRACT INFECTION, SITE NOT SPECIFIED Status: Acute Current Visit: No Qualifiers: Urinary tract infection type: acute cystitis (3) SNOMED Code(s): 87034369 ICD Code: Z34.90 - ENCNTR FOR SUPRVSN OF NORMAL , UNSP, UNSP TRIMESTER Status: Acute Current Visit: No Qualifiers: Weeks of gestation: 14 weeks Qualified Code(s): Z3A.14 - 14 weeks gestation of Problem List Initiated/Reviewed/Updated: Yes Orders Last 24hrs: Active Orders 24 hr Category Date Time Status Patient Status [ADT] Routine ADT 09/27/18 14:43 Active EKG Documentation Completion [RC] ASDIRECTED Care 09/27/18 14:45 Active Influenza Vaccine Charge [RC] .DISCHARGE Care 09/27/18 16:01 Active Intake and Output [RC] QSHIFT Care 09/27/18 14:44 Active Oxygen Therapy [RC] PRN Care 09/27/18 14:43 Active Vital Signs [RC] Q4H Care 09/27/18 14:43 Active Nothing per Oral Now Diet [DIET] Diet 09/27/18 Breakfast Active Abdomen Ltd [US] Routine Exams 09/27/18 14:43 Taken CBC WITH AUTO DIFF [HEME] AM Lab 09/28/18 05:11 Ordered COMPREHENSIVE METABOLIC PN,CMP [CHEM] AM Lab 09/28/18 05:11 Ordered LIPASE, SERUM Stat Lab 09/27/18 15:31 Received Lactated Ringers [Ringers, Lactated] 1,000 ml Med 09/27/18 14:45 Active IV ASDIRECTED Morphine Med 09/27/18 18:03 Ordered 2 mg IVPUSH Q2H PRN Ondansetron [Zofran] Med 09/27/18 14:43 Active 4 mg IVPUSH Q4H PRN Sodium Chloride 0.9% [Saline Flush] Med 09/27/18 14:43 Active 10 ml FLUSH ASDIRECTED PRN cefTRIAXone [Rocephin] 1 gm Med 09/27/18 14:45 Active Sodium Chloride 0.9% [Normal Saline] 50 ml IV Q24H Peripheral IV Insertion Adult [OM.PC] Routine Oth 09/27/18 14:43 Ordered Resuscitation Status Routine Resus Stat 09/27/18 14:43 Ordered EKG 12 Lead [EK] Stat Ther 09/27/18 14:43 Ordered Medication Orders Ceftriaxone Sodium 1 gm/ (Sodium Chloride) 50 mls @ 200 mls/hr IV Q24H MARIO Last Admin: 09/27/18 15:43 Dose: 200 mls/hr Lactated Ringer's (Ringers, Lactated) 1,000 mls @ 125 mls/hr IV ASDIRECTED MARIO Last Admin: 09/27/18 16:06 Dose: 125 mls/hr Ondansetron HCl (Zofran) 4 mg IVPUSH Q4H PRN PRN Reason: Nausea/Vomiting Last Admin: 09/27/18 16:14 Dose: 4 mg Sodium Chloride (Saline Flush) 10 ml FLUSH ASDIRECTED PRN PRN Reason: Keep Vein Open Last Admin: 09/27/18 16:02 Dose: 10 ml Admin: 09/27/18 15:43 Dose: 10 ml Admin: 09/27/18 15:36 Dose: 10 ml Admin: 09/27/18 15:25 Dose: 10 ml Assessment/Plan Comment:: Admit for observation,IVF,keep NPO and use IV narcotics for pain control.IV Rocephin for UTI. Obtain a US Gallbladder. Also start PPI,repeat Labs in AM
[2018-09-27] MEDS ORDERED: diphenhydrAMINE 50 MG/ML SDV IVPUSH PRN (19:52)
[2018-09-27] MEDS ORDERED: Acetaminophen 325 MG Tab PO PRN (19:53)
[2018-09-27] MEDS ORDERED: fentaNYL 100 MCG/2 ML SDV IVPUSH PRN (19:57)
[2018-09-27] MEDS: Ketorolac 30 MG/ML SDV IVPUSH PRN (21:00)
[2018-09-28] MEDS: Lactated Ringers 1,000 ML IV SCH ×2 (00:09→08:23)
--- NOTE | 2018-09-28 07:58 | US ---
INDICATION: Epigastric pain. RIGHT UPPER QUADRANT/GALLBLADDER ULTRASOUND: Multiple ultrasonic images were obtained 09/27/18 - no comparisons. The liver is somewhat heterogeneously echogenic, compatible with fatty liver with areas of fatty sparing. No definite focal mass lesions of the liver were suggested. The gallbladder appeared to be normal in size without evidence of wall thickening, calculi, positive ultrasonic [place] sign, pericholecystic fluid, or sludge. The gallbladder measured 5.9 x 2 x 1.7 cm and up to 6.8 cm maximally. The common bile duct was normal in caliber at 3.7 mm. The right kidney appeared normal, measuring 10.4 x 3.7 x 4.8 cm. The pancreas was not adequately visualized due to intestinal gas. IMPRESSION: As visualized, normal right upper quadrant/gallbladder ultrasound, except to suggest fatty liver with areas of fatty sparing. Report faxed to Dr. Elan Arteaga on 09/28/18 at 0830 hours. [facility]
[2018-09-28] MEDS ORDERED: Loperamide 2 MG Cap PO ONE (07:59)
[2018-09-28] MEDS ORDERED: Potassium Chloride 20 MEQ Tab.ER PO ONE (07:59)
--- NOTE | 2018-09-28 08:03 | PCM.PN ---
- General Info Date of Service: 09/28/18 Subjective Update: Epigastric pain has markedly improved. Has had x 4 diarrhea.Nausea is better. Functional Status: Reports: Pain Controlled - Review of Systems General: Reports: No Symptoms HEENT: Reports: No Symptoms Pulmonary: Reports: No Symptoms Cardiovascular: Reports: No Symptoms Gastrointestinal: Reports: Diarrhea, Nausea Genitourinary: Reports: No Symptoms Musculoskeletal: Reports: No Symptoms - Patient Data Vitals - Most Recent: Last Vital Signs Temp 98.2 F 09/28/18 06:45 Pulse 90 09/28/18 06:45 Resp 18 09/28/18 06:45 BP 106/57 L 09/28/18 06:45 Pulse Ox 97 09/28/18 06:45 Weight - Most Recent: 69.91 kg I&O - Last 24 Hours: Intake & Output 09/27/18 09/28/18 09/28/18 22:59 06:59 14:59 Intake Total 50 1764 Output Total 415 550 Balance -365 1214 Lab Results Last 24 Hours: Laboratory Results - last 24 hr 09/27/18 09/27/18 09/28/18 Range/Units 15:31 15:31 06:25 WBC 6.9 4.4 L (4.5-12.0) X10-3/uL RBC 3.98 3.47 (3.23-5.20) x10(6)uL Hgb 10.9 L 9.3 L (11.5-15.5) g/dL Hct 31.7 27.9 L (30.0-51.3) % MCV 79.6 L 80.4 (80-96) fL MCH 27.3 L 26.7 L (27.7-33.6) pg MCHC 34.3 33.2 (32.2-35.4) g/dL RDW 15.2 15.3 (11.5-15.5) % Plt Count 260 229 (125-369) X10(3)uL MPV 8.6 8.4 (7.4-10.4) fL Neut % (Auto) 75.8 (46-82) % Lymph % (Auto) 15.9 (13-37) % [place] % (Auto) 8.0 (4-12) % Eos % (Auto) 0 L (1.0-5.0) % Baso % (Auto) 0 (0-2) % Neut # (Auto) 3.4 (1.6-8.3) # Lymph # (Auto) 0.7 (0.6-5.0) # [place] # (Auto) 0.3 (0.0-1.3) # Eos # (Auto) 0.0 (0.0-0.8) # Baso # (Auto) 0.0 (0.0-0.2) # Add Manual Diff Yes Neutrophils % (Manual) 81 (46-82) % Band Neutrophils % 2 (0-6) % Lymphocytes % (Manual) 12 L (13-37) % Monocytes % (Manual) 5 (4-12) % Sodium 135 (135-145) mmol/L Potassium 3.3 L (3.5-5.3) mmol/L Chloride 100 (100-110) mmol/L Carbon Dioxide 23 (21-32) mmol/L BUN 3 L (7-18) mg/dL Creatinine 0.7 (0.55-1.02) mg/dL Est Cr Clr Drug Dosing 94.63 mL/min Estimated GFR (MDRD) > 60 (>60) BUN/Creatinine Ratio 4.3 L (9-20) Glucose 95 (80-116) mg/dL Calcium 8.2 L (8.6-10.2) mg/dL Total Bilirubin 0.2 (0.1-1.3) mg/dL AST 14 (5-25) IU/L ALT 15 (12-36) U/L Alkaline Phosphatase 76 (56-112) IU/L Total Protein 7.2 (6.0-8.0) g/dL Albumin 2.6 L (3.5-5.2) g/dL Globulin 4.6 g/dL Albumin/Globulin Ratio 0.6 Amylase 81 (25-115) U/L 09/28/18 Range/Units 06:25 WBC (4.5-12.0) X10-3/uL RBC (3.23-5.20) x10(6)uL Hgb (11.5-15.5) g/dL Hct (30.0-51.3) % MCV (80-96) fL MCH (27.7-33.6) pg MCHC (32.2-35.4) g/dL RDW (11.5-15.5) % Plt Count (125-369) X10(3)uL MPV (7.4-10.4) fL Neut % (Auto) (46-82) % Lymph % (Auto) (13-37) % [place] % (Auto) (4-12) % Eos % (Auto) (1.0-5.0) % Baso % (Auto) (0-2) % Neut # (Auto) (1.6-8.3) # Lymph # (Auto) (0.6-5.0) # [place] # (Auto) (0.0-1.3) # Eos # (Auto) (0.0-0.8) # Baso # (Auto) (0.0-0.2) # Add Manual Diff Neutrophils % (Manual) (46-82) % Band Neutrophils % (0-6) % Lymphocytes % (Manual) (13-37) % Monocytes % (Manual) (4-12) % Sodium 136 (135-145) mmol/L Potassium 3.0 L (3.5-5.3) mmol/L Chloride 102 (100-110) mmol/L Carbon Dioxide 23 (21-32) mmol/L BUN 6 L (7-18) mg/dL Creatinine 0.6 (0.55-1.02) mg/dL Est Cr Clr Drug Dosing 110.40 mL/min Estimated GFR (MDRD) > 60 (>60) BUN/Creatinine Ratio 10.0 (9-20) Glucose 88 (80-116) mg/dL Calcium 7.8 L (8.6-10.2) mg/dL Total Bilirubin 0.2 (0.1-1.3) mg/dL AST 15 (5-25) IU/L ALT 15 (12-36) U/L Alkaline Phosphatase 64 (56-112) IU/L Total Protein 6.0 (6.0-8.0) g/dL Albumin 2.1 L (3.5-5.2) g/dL Globulin 3.9 g/dL Albumin/Globulin Ratio 0.5 Amylase (25-115) U/L Med Orders - Current: Current Medications Acetaminophen (Tylenol) 650 mg PO Q4H PRN PRN Reason: Fever Last Admin: 09/28/18 02:14 Dose: 650 mg Diphenhydramine HCl (Benadryl) 50 mg IVPUSH Q6H PRN PRN Reason: Itching Last Admin: 09/27/18 21:00 Dose: 50 mg Fentanyl (Sublimaze) 50 mcg IVPUSH Q3H PRN PRN Reason: Pain Ceftriaxone Sodium 1 gm/ (Sodium Chloride) 50 mls @ 200 mls/hr IV Q24H [facility] Last Admin: 09/27/18 15:43 Dose: 200 mls/hr Lactated Ringer's (Ringers, Lactated) 1,000 mls @ 125 mls/hr IV ASDIRECTED [facility] Last Admin: 09/28/18 00:09 Dose: 125 mls/hr Ketorolac Tromethamine (Toradol) 30 mg IVPUSH Q6H PRN PRN Reason: Pain Stop: 10/02/18 19:50 Last Admin: 09/27/18 21:00 Dose: 30 mg Ondansetron HCl (Zofran) 4 mg IVPUSH Q4H PRN PRN Reason: Nausea/Vomiting Last Admin: 09/27/18 21:02 Dose: 4 mg Sodium Chloride (Saline Flush) 10 ml FLUSH ASDIRECTED PRN PRN Reason: Keep Vein Open Last Admin: 09/27/18 20:59 Dose: 10 ml Discontinued Medications Influenza Virus Vaccine (Fluzone Quad [id number] Syringe) 60 mcg IM .ONCE ONE Stop: 09/27/18 16:31 Morphine Sulfate (Morphine Sulfate) 4 mg IVPUSH Q6H PRN PRN Reason: ABDOMINAL PAIN Last Admin: 09/27/18 15:34 Dose: 4 mg Morphine Sulfate (Morphine) 2 mg IVPUSH Q2H PRN PRN Reason: Breakthrough Pain Last Admin: 09/27/18 18:22 Dose: 2 mg Pantoprazole Sodium (Protonix Iv) 40 mg IVPUSH ONETIME ONE Stop: 09/27/18 14:44 Last Admin: 09/27/18 15:39 Dose: 40 mg Pneumococcal Polyvalent Vaccine (Pneumovax 23) 0.5 ml IM .ONCE ONE Stop: 09/27/18 16:02 - Exam General: Alert HEENT: Pupils Equal Neck: Supple Lungs: Clear to Auscultation Cardiovascular: Regular Rate GI/Abdominal Exam: Normal Bowel Sounds, Soft, Non-Tender, No Mass - Problem List & Annotations (1) Epigastric abdominal pain SNOMED Code(s): 40975455 Code(s): R10.13 - EPIGASTRIC PAIN Status: Acute Current Visit: Yes (2) UTI (urinary tract infection) SNOMED Code(s): 25321278 Code(s): N39.0 - URINARY TRACT INFECTION, SITE NOT SPECIFIED Status: Acute Current Visit: No Qualifiers: Urinary tract infection type: acute cystitis (3) SNOMED Code(s): 05127835 Code(s): Z34.90 - ENCNTR FOR SUPRVSN OF NORMAL , UNSP, UNSP TRIMESTER Status: Acute Current Visit: No Qualifiers: Weeks of gestation: 14 weeks Qualified Code(s): Z3A.14 - 14 weeks gestation of (4) Gastroenteritis SNOMED Code(s): 05924983 Code(s): K52.9 - NONINFECTIVE GASTROENTERITIS AND COLITIS, UNSPECIFIED Status: Acute Current Visit: Yes (5) Hypokalemia SNOMED Code(s): 56701411 Code(s): E87.6 - HYPOKALEMIA Status: Acute Current Visit: Yes - Problem List Review Problem List Initiated/Reviewed/Updated: Yes - My Orders Last 24 Hours: My Active Orders 09/27/18 14:43 Patient Status [ADT] Routine Oxygen Therapy [RC] PRN Vital Signs [RC] 00,04,08,12,16,20 Ondansetron [Zofran] 4 mg IVPUSH Q4H PRN Sodium Chloride 0.9% [Saline Flush] 10 ml FLUSH ASDIRECTED PRN Peripheral IV Insertion Adult [OM.PC] Routine Resuscitation Status Routine EKG 12 Lead [EK] Stat 09/27/18 14:44 Intake and Output [RC] 06,14,22 09/27/18 14:45 Lactated Ringers [Ringers, Lactated] 1,000 ml IV ASDIRECTED cefTRIAXone [Rocephin] 1 gm Sodium Chloride 0.9% [Normal Saline] 50 ml IV Q24H 09/27/18 15:31 LIPASE, SERUM Stat 09/27/18 19:50 Ketorolac [Toradol] 30 mg IVPUSH Q6H PRN 09/27/18 19:52 diphenhydrAMINE [Benadryl] 50 mg IVPUSH Q6H PRN 09/27/18 19:53 Acetaminophen [Tylenol] 650 mg PO Q4H PRN 09/27/18 19:57 fentaNYL [Sublimaze] 50 mcg IVPUSH Q3H PRN 09/28/18 07:59 Loperamide [Imodium] 2 mg PO ONETIME ONE Potassium Chloride [Klor-Con M20] 40 meq PO ONETIME ONE Convert IV to Saline Lock [OM.PC] Stat 09/28/18 Breakfast Regular Diet [DIET] 09/28/18 Lunch Regular Diet [DIET] - Plan Plan:: Advance diet. Replace Potassium. Try Imodium for diarrhea. May DC home today if able to tolerate regular diet.
[2018-09-28] MEDS: Ketorolac 30 MG/ML SDV IVPUSH PRN (08:36)
[2018-09-28 10:56] VITALS: BP 97/62
== END 2018-09-28 11:44 | disposition home or self-care (01) ==
LOC: FB.MS 14:30
PROVIDERS: ADMIT Family Medicine; ATTEND Family Medicine
DX: O99.89 Other specified diseases and conditions complicating pregnancy, childbirth and the puerperium (principal); R10.13 Epigastric pain; O99.011 Anemia complicating pregnancy, first trimester; O23.11 Infections of bladder in pregnancy, first trimester; O99.611 Diseases of the digestive system complicating pregnancy, first trimester; K52.9 Noninfective gastroenteritis and colitis, unspecified; O99.281 Endocrine, nutritional and metabolic diseases complicating pregnancy, first trimester; E87.6 Hypokalemia; Z3A.14 14 weeks gestation of pregnancy
CPT/HCPCS: 36415; 76705; 80053; 82150; 83690; 85025; 96361; 96365; 96375; 96376; A9270; C9113; G0378; J0696; J1200; J1885; J2270; J2405; J7050; J7120

== ENCOUNTER 2019-03-22 06:05 | Inpatient (IN) | payer MEDICAID ==
[2019-03-22] MEDS ORDERED: Citric Acid/Sodium Citrate Solution 30 ML Cup PO ONE (07:11)
[2019-03-22] MEDS ORDERED: Scopolamine 1.5 MG Transdermal Patch TOP ONE (07:12)
[2019-03-22] MEDS ORDERED: ceFAZolin 1 GM Vial ONE (07:30)
[2019-03-22] MEDS ORDERED: ceFAZolin 1 GM Vial IVPUSH ONE (08:00)
[2019-03-22] MEDS ORDERED: ceFAZolin 1 GM in Sodium Chloride 0.9% 50 ML IV ONE (08:00)
[2019-03-22] MEDS ORDERED: ePHEDrine 50 MG/ML SDV IVPUSH PRN (09:53)
[2019-03-22] MEDS ORDERED: Naloxone 0.4 MG/ML SDV IVPUSH PRN ×2 (09:53→10:34)
[2019-03-22] MEDS ORDERED: Nalbuphine 10 MG/1 ML Vial IVPUSH PRN (10:34)
[2019-03-22] MEDS ORDERED: diphenhydrAMINE 50 MG/ML SDV IV PRN (10:34)
[2019-03-22] MEDS ORDERED: Morphine 2 MG/ML Syringe IVPUSH PRN (10:34)
[2019-03-22] MEDS: Lactated Ringers 1,000 ML IV SCH ×4 (10:46→22:50)
[2019-03-22] MEDS: Ketorolac 15 MG/ML SDV IVPUSH PRN ×2 (12:04→20:13)
[2019-03-22] MEDS ORDERED: Oxytocin 10 Units/1 ML SDV IV ONE (14:09)
[2019-03-22] MEDS ORDERED: ePHEDrine 50 MG/ML SDV IV ONE (14:09)
[2019-03-22] MEDS ORDERED: diphenhydrAMINE 50 MG/ML SDV IVPUSH ONE (14:09)
[2019-03-22] MEDS ORDERED: Bupivacaine 0.75%/D5W 2 ML Amp INJECT ONE (14:09)
[2019-03-22] MEDS ORDERED: HYDROmorphone 2 MG/ML SDV IV ONE (14:09)
[2019-03-22] MEDS ORDERED: Midazolam 1 MG/ML 2 ML SDV IV ONE (14:09)
[2019-03-22] MEDS ORDERED: Phenylephrine 1% 10 MG/ML SDV IV ONE (14:09)
[2019-03-22] MEDS ORDERED: Morphine PF 10 MG/10 ML SDV IV ONE (14:09)
[2019-03-22] MEDS ORDERED: Lactated Ringers 1,000 ML IV ONE (14:09)
[2019-03-22] MEDS ORDERED: Ondansetron 4 MG/2 ML SDV IVPUSH ONE (14:09)
[2019-03-22] MEDS: Ondansetron 4 MG/2 ML SDV IVPUSH PRN (15:23)
[2019-03-22] MEDS: diphenhydrAMINE 50 MG/ML SDV IVPUSH PRN ×2 (16:19→22:51)
[2019-03-23] MEDS: Lactated Ringers 1,000 ML IV SCH ×2 (03:18→06:38)
[2019-03-23] MEDS: diphenhydrAMINE 50 MG/ML SDV IVPUSH PRN ×3 (03:19→17:34)
[2019-03-23] MEDS: Ketorolac 15 MG/ML SDV IVPUSH PRN (03:21)
[2019-03-23] MEDS ORDERED: Bisacodyl 5 MG Tab PO PRN (08:01)
[2019-03-23] MEDS ORDERED: Sodium Chloride 0.9% 250 ML IV SCH (08:15)
--- NOTE | 2019-03-23 08:57 | OR ---
DATE OF OPERATION: 03/22/2019 SURGEON: Pawan Gallego MD PREOPERATIVE DIAGNOSIS: Ventral hernia. POSTOPERATIVE DIAGNOSIS: Ventral hernia. PROCEDURE: Ventral hernia repair. ANESTHESIA: Spinal. HISTORY: This 28-year-old female was undergoing her third . I was asked by Dr. Arteaga to come and assist and evaluate her abdominal wall, after the baby had been delivered. The uterus had been closed and the patient was doing well. She has significant scarring of her rectus muscle, subcutaneous fat, and abdominal fascia. There were also significant adhesions of omentum to the peritoneum. It appeared that there was a moderate-sized ventral hernia, as the fascial edges are ill-defined. I first the omentum from the peritoneum and pushed that into the upper abdomen, so that I was not interfering with visualization. The peritoneal edges were then well-defined circumferentially and this layer was closed with a running 2-0 chromic. The abdominal wall fascia was ill-defined. Inferiorly, I was able to find the fascial edges laterally and then worked towards the midline and this from the subcutaneous fat. There was a 1 cm defect in the mid fascia lower, above the pubic symphysis, and I closed this with 0 Vicryl. After the inferior fascial edges had been defined, I started working on the superior edge. Again, I started from the lateral edge and started working medially, the fascia from the subcutaneous tissue and underlying rectus abdominis muscle. The fascial edges appeared to be strong circumferentially, and the fascia was then closed in a single layer with a running 0 Vicryl providing a tension-free repair. The wound was thoroughly irrigated and hemostasis assured. Skin was closed with rachel. The patient tolerated the procedure well and returned to recovery room in stable condition. /[id number] VERA/MAURICE
[2019-03-23] MEDS: Ibuprofen 600 MG Tab PO SCH ×3 (10:03→22:29)
[2019-03-23] MEDS: Acetaminophen/HYDROcodone 325-5 MG Tab PO PRN ×2 (11:05→22:35)
[2019-03-23] MEDS: Ondansetron 4 MG/2 ML SDV IVPUSH PRN (11:05)
--- NOTE | 2019-03-23 12:56 | PCM.PNPP ---
- General Info Date of Service: 03/23/19 Subjective Update: Complains of blurry vision.Denies headache. Functional Status: Reports: Pain Controlled, Tolerating Diet - Review of Systems General: Reports: No Symptoms HEENT: Reports: No Symptoms Pulmonary: Reports: Cough Cardiovascular: Reports: No Symptoms Gastrointestinal: Reports: No Symptoms Genitourinary: Reports: No Symptoms Musculoskeletal: Reports: No Symptoms - Patient Data Vital Signs - Most Recent: Last Vital Signs Temp 98.5 F 03/23/19 12:35 Pulse 82 03/23/19 12:35 Resp 18 03/23/19 12:35 BP 113/63 03/23/19 12:35 Pulse Ox 99 03/23/19 10:35 Weight - Most Recent: 76.204 kg I&O - Last 24 Hours: Intake & Output 03/22/19 03/23/19 03/23/19 22:59 06:59 14:59 Intake Total 2954 2170 390 Output Total 800 1650 1250 Balance 2154 520 -860 Lab Results - Last 24 Hours: Laboratory Results - last 24 hr 03/22/19 03/23/19 Range/Units 07:00 05:58 WBC 8.8 (4.5-12.0) X10-3/uL RBC 3.07 L (3.23-5.20) x10(6)uL Hgb 6.6 L* (11.5-15.5) g/dL Hct 20.9 L* (30.0-51.3) % MCV 68.3 L (80-96) fL MCH 21.7 L (27.7-33.6) pg MCHC 31.7 L (32.2-35.4) g/dL RDW 16.7 H (11.5-15.5) % Plt Count 226 (125-369) X10(3)uL MPV 8.2 (7.4-10.4) fL Neut % (Auto) 68.7 (46-82) % Lymph % (Auto) 23.3 (13-37) % [place] % (Auto) 6.8 (4-12) % Eos % (Auto) 1 (1.0-5.0) % Baso % (Auto) 0 (0-2) % Neut # (Auto) 6.1 (1.6-8.3) # Lymph # (Auto) 2.0 (0.6-5.0) # [place] # (Auto) 0.6 (0.0-1.3) # Eos # (Auto) 0.1 (0.0-0.8) # Baso # (Auto) 0.0 (0.0-0.2) # Blood Type O POSITIVE Gel Antibody Screen Negative Crossmatch See Detail Med Orders - Current: Current Medications Hydrocodone Bitart/Acetaminophen ([place] 325-5 Mg) 1 tab PO Q4H PRN PRN Reason: Pain Last Admin: 03/23/19 11:05 Dose: 1 tab Bisacodyl (Dulcolax) 10 mg PO DAILY PRN PRN Reason: Constipation Last Admin: 03/23/19 11:52 Dose: 10 mg Diphenhydramine HCl (Benadryl) 25 mg IVPUSH Q6H PRN PRN Reason: Itching or Nausea Last Admin: 03/23/19 10:04 Dose: 25 mg Diphenhydramine HCl (Benadryl) 25 mg IV ONETIME PRN PRN Reason: Pruritus Ephedrine Sulfate (Ephedrine Sulfate) 5 mg IVPUSH ASDIRECTED PRN PRN Reason: Other Sodium Chloride (Normal Saline) 250 mls @ 100 mls/hr IV ASDIRECTED MARIO Ibuprofen (Motrin) 600 mg PO Q6H MARIO Last Admin: 03/23/19 10:03 Dose: 600 mg Morphine Sulfate (Morphine) 2 mg IVPUSH Q1H PRN PRN Reason: Pain Last Admin: 03/22/19 18:48 Dose: 2 mg Nalbuphine HCl (Nubain) 10 mg IVPUSH Q1H PRN PRN Reason: Pruritus Last Admin: 03/22/19 10:59 Dose: 10 mg Naloxone HCl (Narcan) 0.1 mg IVPUSH ONETIME PRN PRN Reason: Oversedation Ondansetron HCl (Zofran) 4 mg IVPUSH Q6H PRN PRN Reason: Nausea/Vomiting Last Admin: 03/23/19 11:05 Dose: 4 mg Sodium Chloride (Saline Flush) 10 ml FLUSH ASDIRECTED PRN PRN Reason: Keep Vein Open Discontinued Medications Cefazolin Sodium (Ancef) 1 gm IVPUSH ONETIME ONE Stop: 03/22/19 08:01 Last Admin: 03/22/19 07:47 Dose: 1 gm Cefazolin Sodium (Ancef) Confirm Administered Dose 1 gm .ROUTE .STK-MED ONE Stop: 03/22/19 07:31 Last Admin: 03/22/19 07:44 Dose: Not Given Citric Acid/Sodium Citrate (Bicitra Solution) 30 ml PO ONETIME ONE Stop: 03/22/19 07:12 Last Admin: 03/22/19 07:30 Dose: 30 ml Lactated Ringer's (Ringers, Lactated) 1,000 mls @ 125 mls/hr IV ASDIRECTED [facility] Stop: 03/23/19 00:05 Last Admin: 03/22/19 07:51 Dose: 125 mls/hr Lactated Ringer's (Ringers, Lactated) 1,000 mls @ 250 mls/hr IV ASDIRECTED [facility] Last Admin: 03/23/19 06:38 Dose: 250 mls/hr Ketorolac Tromethamine (Toradol) 15 mg IVPUSH Q6H PRN PRN Reason: Pain Stop: 03/27/19 10:37 Last Admin: 03/23/19 03:21 Dose: 15 mg Naloxone HCl (Narcan) 0.1 mg IVPUSH ONETIME PRN PRN Reason: Respiratory Depression Scopolamine (Transderm-Scop) 1.5 mg TOP ONETIME ONE Stop: 03/22/19 07:13 Last Admin: 03/22/19 07:30 Dose: 1.5 mg - Interaction Infant Disposition, : Ambia in Room with Family Support Person: , Sister - Recovery Exam Fundal Tone: Firm Fundal Level: 1 Fingerbreadths Below Umbilicus Fundal Placement: Midline Lochia Amount: Small Lochia Color: Rubra/Red Perineum Description: Intact, Minimal Bruising/Swelling Episiotomy/Laceration: None Bladder Status: Indwelling Catheter in Place Urinary Elimination: Indwelling Catheter - Exam General: Alert HEENT: Pupils Equal, Pupils Reactive, EOMI Neck: Supple Lungs: Clear to Auscultation Cardiovascular: Regular Rate GI/Abdominal Exam: Normal Bowel Sounds, Tender. No: Guarding Skin: Warm Wound/Incisions: Healing Well, Dressing Dry and Intact - Problem List & Annotations (1) Delivery by section SNOMED Code(s): 354158586 Code(s): HAY4060 - Status: Acute Current Visit: Yes (2) Blood loss, postoperative SNOMED Code(s): 327589736 Code(s): KHC2406 - Status: Acute Current Visit: Yes Qualifiers: Surgical complication system/body Area: genitourinary (3) care and examination SNOMED Code(s): 811651117, 345501847 Code(s): Z39.2 - ENCOUNTER FOR ROUTINE FOLLOW-UP Status: Acute Current Visit: Yes - Problem List Review Problem List Initiated/Reviewed/Updated: Yes - My Orders Last 24 Hours: My Active Orders 03/22/19 Dinner Regular Diet [DIET] 03/23/19 08:01 Acetaminophen/HYDROcodone [[place] 325-5 MG] 1 tab PO Q4H PRN Bisacodyl [Dulcolax] 10 mg PO DAILY PRN Transfuse PRBC [Transfuse Red Blood Cells] [COMM] Stat 03/23/19 08:15 Ibuprofen [Motrin] 600 mg PO Q6H Sodium Chloride 0.9% [Normal Saline] 250 ml IV ASDIRECTED 03/23/19 08:46 Blood Glucose Check, Bedside [RC] ONETIME 03/24/19 05:11 BASIC METABOLIC PANEL,BMP [CHEM] AM CBC WITH AUTO DIFF [HEME] AM - Plan Plan:: DC IVF. Transfuse 1 unit PRBCs. Oral narcotics and Dulcolax.,
--- NOTE | 2019-03-23 16:10 | OR ---
DATE OF OPERATION: 03/22/2019 SURGEON: Elan Arteaga MD PREOPERATIVE DIAGNOSES: 1. Intrauterine at term. 2. Repeat section. POSTOPERATIVE DIAGNOSES: 1. Intrauterine at term. 2. Repeat section. 3. Extensive adhesions in the pelvis. 4. Abdominal hernia. PROCEDURES PERFORMED: 1. Repeat low transverse section. 2. Hernia repair. Please see Dr. Gallego' note. WIRE WEAVER HELPER: Pawan Gallego MD, and King Negron MD. ESTIMATED BLOOD LOSS: About 400 mL. ANESTHESIA: Epidural. COMPLICATIONS: Extensive adhesions. FINDINGS: Female infant in cephalic OP position. score 9 and 9. PERMIT: The patient accepted the risks and benefits. Hemoglobin was noted to be 8.5 prior to the procedure. INDICATIONS: A 28-year-old female for third section, elective, repeat. DESCRIPTION OF PROCEDURE: The patient was taken to the OR, where the epidural anesthesia was found to be adequate. The patient was prepped and draped in the usual sterile fashion in the dorsal supine position with a leftward tilt. A Pfannenstiel incision was made along the previous scar and carried to the underlying fascia using a knife. It was difficult to identify the fascia, which was adhered to the muscles on the rectus. A midline incision was made along it and that an attempt was made to detach the upper muscles from the fascia. This was poorly done. In the lower portion, this was better visualized and it was attempted. There was an opening in the midline where we used to enter the peritoneum and stretch. A bladder blade was inserted and the bladder reflection of the visceral peritoneum was placed around the lower uterine segment. Using a knife, an incision was made and extended with the fingers and the baby was delivered through this with no complications. It was a live vigorous female , whose cord was cut and clamped, and the baby handed to the awaiting nurses. At this point, I called Dr. Gallego to come and help with the repair of the hernia and also to help me close. After the uterus was exteriorized, it was closed in 2 layers with no difficulty. Adequate hemostasis was achieved. The fascia, however, was difficult to approximate and identify. After careful identification and approximation, this was brought together with [address] Gallego repaired the hernia that was found in that area. The subcutaneous tissue was then closed along with the skin using rachel. Please note that the cord was intact, 3-vessel, and this was removed after the uterus was exteriorized. The uterus was also closed in 2 layers. The patient got 2 g of Ancef before the surgery. The count for needles, instruments, laps was correct x3. I would like to appreciate Dr. Negron and Dr. Gallego for their help during this procedure. The patient was stable in the postanesthesia unit after the procedure. She will be admitted to the labor unit with IV fluids and close observation. /[id number] TN/MODL
[2019-03-23] MEDS: Sodium Chloride 0.9% 10 ML Syringe FLUSH PRN (17:35)
[2019-03-24] MEDS: Ibuprofen 600 MG Tab PO SCH ×2 (02:20→09:33)
[2019-03-24] MEDS: diphenhydrAMINE 50 MG/ML SDV IVPUSH PRN (02:48)
[2019-03-24] MEDS: Sodium Chloride 0.9% 10 ML Syringe FLUSH PRN (02:48)
[2019-03-24 03:01] VITALS: PULSE 85
[2019-03-24] MEDS: Acetaminophen/HYDROcodone 325-5 MG Tab PO PRN (05:58)
--- NOTE | 2019-03-24 09:52 | PCM.PNPP ---
- General Info Date of Service: 03/24/19 Subjective Update: pain is better. Hgb up to 8. Good output Functional Status: Reports: Pain Controlled - Review of Systems General: Reports: No Symptoms HEENT: Reports: No Symptoms Pulmonary: Reports: No Symptoms Cardiovascular: Reports: No Symptoms Gastrointestinal: Reports: No Symptoms Genitourinary: Reports: No Symptoms Musculoskeletal: Reports: No Symptoms Skin: Reports: No Symptoms Neurological: Reports: No Symptoms Psychiatric: Reports: No Symptoms - General Info Date of Service: 03/24/19 - Patient Data Vital Signs - Most Recent: Last Vital Signs Temp 97.7 F 03/24/19 00:00 Pulse 85 03/24/19 00:00 Resp 16 03/24/19 00:00 BP 127/27 L 03/24/19 00:00 Pulse Ox 97 03/24/19 00:00 Weight - Most Recent: 76.204 kg Lab Results - Last 24 Hours: Laboratory Results - last 24 hr 03/22/19 03/23/19 03/24/19 Range/Units 07:00 08:50 06:45 WBC 9.5 (4.5-12.0) X10-3/uL RBC 3.46 (3.23-5.20) x10(6)uL Hgb 8.0 L (11.5-15.5) g/dL Hct 24.8 L (30.0-51.3) % MCV 71.8 L (80-96) fL MCH 23.3 L (27.7-33.6) pg MCHC 32.4 (32.2-35.4) g/dL RDW 18.5 H (11.5-15.5) % Plt Count 270 (125-369) X10(3)uL MPV 9.2 (7.4-10.4) fL Neut % (Auto) 66.8 (46-82) % Lymph % (Auto) 24.2 (13-37) % [place] % (Auto) 6.5 (4-12) % Eos % (Auto) 2 (1.0-5.0) % Baso % (Auto) 1 (0-2) % Neut # (Auto) 6.4 (1.6-8.3) # Lymph # (Auto) 2.3 (0.6-5.0) # [place] # (Auto) 0.6 (0.0-1.3) # Eos # (Auto) 0.2 (0.0-0.8) # Baso # (Auto) 0.0 (0.0-0.2) # Sodium (135-145) mmol/L Potassium (3.5-5.3) mmol/L Chloride (100-110) mmol/L Carbon Dioxide (21-32) mmol/L BUN (7-18) mg/dL Creatinine (0.55-1.02) mg/dL Est Cr Clr Drug Dosing mL/min Estimated GFR (MDRD) (>60) BUN/Creatinine Ratio (9-20) Glucose (80-116) mg/dL POC Glucose 85 (80-116) mg/dL Calcium (8.6-10.2) mg/dL Blood Type O POSITIVE Gel Antibody Screen Negative Crossmatch See Detail 03/24/19 Range/Units 06:45 WBC (4.5-12.0) X10-3/uL RBC (3.23-5.20) x10(6)uL Hgb (11.5-15.5) g/dL Hct (30.0-51.3) % MCV (80-96) fL MCH (27.7-33.6) pg MCHC (32.2-35.4) g/dL RDW (11.5-15.5) % Plt Count (125-369) X10(3)uL MPV (7.4-10.4) fL Neut % (Auto) (46-82) % Lymph % (Auto) (13-37) % [place] % (Auto) (4-12) % Eos % (Auto) (1.0-5.0) % Baso % (Auto) (0-2) % Neut # (Auto) (1.6-8.3) # Lymph # (Auto) (0.6-5.0) # [place] # (Auto) (0.0-1.3) # Eos # (Auto) (0.0-0.8) # Baso # (Auto) (0.0-0.2) # Sodium 139 (135-145) mmol/L Potassium 3.7 (3.5-5.3) mmol/L Chloride 104 (100-110) mmol/L Carbon Dioxide 26 (21-32) mmol/L BUN 5 L (7-18) mg/dL Creatinine 0.8 (0.55-1.02) mg/dL Est Cr Clr Drug Dosing 88.08 mL/min Estimated GFR (MDRD) > 60 (>60) BUN/Creatinine Ratio 6.3 L (9-20) Glucose 109 (80-116) mg/dL POC Glucose (80-116) mg/dL Calcium 8.3 L (8.6-10.2) mg/dL Blood Type Gel Antibody Screen Crossmatch Med Orders - Current: Current Medications Hydrocodone Bitart/Acetaminophen ([place] 325-5 Mg) 1 tab PO Q4H PRN PRN Reason: Pain Last Admin: 03/24/19 05:58 Dose: 1 tab Bisacodyl (Dulcolax) 10 mg PO DAILY PRN PRN Reason: Constipation Last Admin: 03/23/19 11:52 Dose: 10 mg Diphenhydramine HCl (Benadryl) 25 mg IVPUSH Q6H PRN PRN Reason: Itching or Nausea Last Admin: 03/24/19 02:48 Dose: 25 mg Diphenhydramine HCl (Benadryl) 25 mg IV ONETIME PRN PRN Reason: Pruritus Ephedrine Sulfate (Ephedrine Sulfate) 5 mg IVPUSH ASDIRECTED PRN PRN Reason: Other Sodium Chloride (Normal Saline) 250 mls @ 100 mls/hr IV ASDIRECTED MARIO Ibuprofen (Motrin) 600 mg PO Q6H MARIO Last Admin: 03/24/19 09:33 Dose: 600 mg Morphine Sulfate (Morphine) 2 mg IVPUSH Q1H PRN PRN Reason: Pain Last Admin: 03/22/19 18:48 Dose: 2 mg Nalbuphine HCl (Nubain) 10 mg IVPUSH Q1H PRN PRN Reason: Pruritus Last Admin: 03/22/19 10:59 Dose: 10 mg Naloxone HCl (Narcan) 0.1 mg IVPUSH ONETIME PRN PRN Reason: Oversedation Ondansetron HCl (Zofran) 4 mg IVPUSH Q6H PRN PRN Reason: Nausea/Vomiting Last Admin: 03/23/19 11:05 Dose: 4 mg Sodium Chloride (Saline Flush) 10 ml FLUSH ASDIRECTED PRN PRN Reason: Keep Vein Open Last Admin: 03/24/19 02:48 Dose: 10 ml Discontinued Medications Cefazolin Sodium (Ancef) 1 gm IVPUSH ONETIME ONE Stop: 03/22/19 08:01 Last Admin: 03/22/19 07:47 Dose: 1 gm Cefazolin Sodium (Ancef) Confirm Administered Dose 1 gm .ROUTE .STK-MED ONE Stop: 03/22/19 07:31 Last Admin: 03/22/19 07:44 Dose: Not Given Citric Acid/Sodium Citrate (Bicitra Solution) 30 ml PO ONETIME ONE Stop: 03/22/19 07:12 Last Admin: 03/22/19 07:30 Dose: 30 ml Lactated Ringer's (Ringers, Lactated) 1,000 mls @ 125 mls/hr IV ASDIRECTED [facility] Stop: 03/23/19 00:05 Last Admin: 03/22/19 07:51 Dose: 125 mls/hr Lactated Ringer's (Ringers, Lactated) 1,000 mls @ 250 mls/hr IV ASDIRECTED [facility] Last Admin: 03/23/19 06:38 Dose: 250 mls/hr Ketorolac Tromethamine (Toradol) 15 mg IVPUSH Q6H PRN PRN Reason: Pain Stop: 03/27/19 10:37 Last Admin: 03/23/19 03:21 Dose: 15 mg Naloxone HCl (Narcan) 0.1 mg IVPUSH ONETIME PRN PRN Reason: Respiratory Depression Scopolamine (Transderm-Scop) 1.5 mg TOP ONETIME ONE Stop: 03/22/19 07:13 Last Admin: 03/22/19 07:30 Dose: 1.5 mg - Infant Interaction Disposition, : in Room with Family Support Person: , Sister - Recovery Exam Fundal Tone: Firm Fundal Level: At Umbilicus Fundal Placement: Midline Lochia Amount: Small Lochia Color: Rubra/Red Perineum Description: Intact, Minimal Bruising/Swelling Episiotomy/Laceration: None Bladder Status: Voiding Urinary Elimination: Voided - Exam General: Alert, Oriented HEENT: Pupils Equal Neck: Supple Lungs: Clear to Auscultation, Normal Respiratory Effort Cardiovascular: Regular Rate, Regular Rhythm GI/Abdominal Exam: Normal Bowel Sounds, Soft, Non-Tender, No Organomegaly, No Distention, No Abnormal Bruit, No Mass, Pelvis Stable Extremities: Normal Inspection, Normal Range of Motion, Non-Tender, No Pedal Edema, Normal Capillary Refill Skin: Warm, Dry, Intact Wound/Incisions: Healing Well Neurological: No New Focal Deficit Psy/Mental Status: Alert, Normal Affect, Normal Mood - Problem List & Annotations (1) Delivery by section SNOMED Code(s): 924490892 Code(s): KJD9035 - Status: Acute Current Visit: Yes (2) Blood loss, postoperative SNOMED Code(s): 188652107 Code(s): XVA0489 - Status: Acute Current Visit: Yes Qualifiers: Surgical complication system/body Area: genitourinary (3) care and examination SNOMED Code(s): 485774936, 893989649 Code(s): Z39.2 - ENCOUNTER FOR ROUTINE FOLLOW-UP Status: Acute Current Visit: Yes - Problem List Review Problem List Initiated/Reviewed/Updated: Yes - Plan Plan:: DC home today per patient request. Follow up on Thursday.
[2019-03-24 17:21] VITALS: BP 116/62
--- NOTE | 2019-03-25 05:09 | DISCH ---
DISCHARGE DATE: 03/24/2019 REASON FOR ADMISSION: Repeat section. DISCHARGE DIAGNOSES: 1. Repeat section. 2. Blood-loss anemia. 3. Ventral hernia repair. CONSULTATION: Pawan Gallego MD BRIEF HISTORY AND HOSPITAL COURSE: A 28-year-old female, who is a G3, presented at term for a repeat . During the , she was found to have extensive adhesions and a ventral hernia. Dr. Gallego was called in to help and assist in the surgery. Postoperatively, she had anemia, hemoglobin dropping down to 6.8, and she got 1 unit of PRBCs. She did well, however, with good urine output, oral intake, and ambulation and requested to go home on the . DISCHARGE MEDICATIONS: 1. Ferrous sulfate 325 mg b.i.d. 2. Hydrocodone 1 tablet every 6 hours p.r.n., 20 tablets. 3. Benadryl 50 mg q.6 hours p.r.n. for itching. FOLLOWUP: She will be seen in the office on Thursday, 03/28, for removal of rachel and care. TIME SPENT: I spent more than 35 minutes in the discharge of the patient. /[id number] GERSON/MAURICE
== END 2019-03-24 14:10 | disposition home or self-care (01) | DRG 787 ==
LOC: FB.OB 06:05
PROVIDERS: ADMIT Family Medicine; ATTEND Family Medicine
PROC: 10D00Z1 Extraction of Products of Conception, Low, Open Approach (ICD-10-PCS; principal; 2019-03-22)
PROC: 0WQF0ZZ Repair Abdominal Wall, Open Approach (ICD-10-PCS; 2019-03-22)
PROC: 30233N1 Transfusion of Nonautologous Red Blood Cells into Peripheral Vein, Percutaneous Approach (ICD-10-PCS; 2019-03-22)
DX: O34.211 Maternal care for low transverse scar from previous cesarean delivery (principal); D62 Acute posthemorrhagic anemia; O75.89 Other specified complications of labor and delivery; K43.9 Ventral hernia without obstruction or gangrene; O99.03 Anemia complicating the puerperium; Z37.0 Single live birth; Z3A.38 38 weeks gestation of pregnancy
CPT/HCPCS: 36415; 36430; 80048; 82962; 85025; 86850; 86900; 86901; 86920; 86922; 94150; A9270-GY; J0690; J1170; J1200; J1885; J2250; J2270; J2300; J2370; J2405; J2590; J7120; P9016

== ENCOUNTER 2020-07-27 21:01 | Emergency (ER) | payer SELFPAY ==
--- NOTE | 2020-07-27 21:23 | EDM.PDOC ---
ED HPI GENERAL MEDICAL PROBLEM - General Chief Complaint: General Stated Complaint: SOB/ UNABLE TO SMELL&TASTE Time Seen by Provider: 07/27/20 21:15 Source of Information: Reports: Patient History Limitations: Reports: No Limitations - History of Present Illness INITIAL COMMENTS - FREE TEXT/NARRATIVE: pt has 30 weeks has been ill for 2 days , had COVID screen then , was negative still has headache , body aches and pains , anorexia , no fever Onset: Today Location: Reports: Chest Quality: Reports: Ache Severity: Moderate Improves with: Reports: None Worsens with: Reports: None Context: Reports: Activity Associated Symptoms: Reports: No Other Symptoms - Related Data Allergies Allergy/AdvReac Type Severity Reaction Status Date / Time No Known Allergies Allergy Verified 07/27/20 22:09 Home Meds: Home Meds Pnv No.95/Ferrous Fum/Folic AC [ Tablet] 1 each PO DAILY 03/21/19 [History] Ascorbic Acid [Vitamin C] 1,000 mg PO DAILY #30 tablet 07/27/20 [Rx] Azithromycin [Zithromax] 500 mg PO DAILY #7 tab 07/27/20 [Rx] guaiFENesin [Mucinex] 600 mg PO BID #20 tab.er.12h 07/27/20 [Rx] Past Medical History - Past Health History Medical/Surgical History: Denies Medical/Surgical History INDUSTRIAL PARAMEDIC History: Reports: Other INDUSTRIAL PARAMEDIC History: HAD 2 C-SECTIONS Neurological History: Reports: Migraines Hematologic History: Reports: Anemia, Other (See Below) Other Hematologic History: during pregnancies - Infectious Disease History Infectious Disease History: Reports: Chicken Pox - Past Surgical History Head Surgeries/Procedures: Reports: None Female Surgical History: Reports: Section Neurological Surgical History: Reports: None Social & Family History - Family History Family Medical History: Unobtainable - Caffeine Use Caffeine Use: Reports: Coffee, Soda ED ROS GENERAL - Review of Systems Review Of Systems: Comprehensive ROS is negative, except as noted in HPI. ED EXAM, GENERAL - Physical Exam Exam: See Below Exam Limited By: No Limitations General Appearance: Alert, WD/WN, No Apparent Distress Eye Exam: Bilateral Eye: EOMI Ears: Normal External Exam Nose: Normal Inspection, Normal Mucosa Throat/Mouth: Normal Inspection Head: Atraumatic, Normocephalic Neck: Normal Inspection, Supple, Non-Tender Respiratory/Chest: No Respiratory Distress, Lungs Clear Cardiovascular: Normal Peripheral Pulses, Regular Rate, Rhythm Back Exam: Normal Inspection, Full Range of Motion Neurological: Alert, Oriented, CN II-XII Intact, Normal Cognition Psychiatric: Normal Affect, Normal Mood Skin Exam: Warm, Dry, Intact Course - Vital Signs Last Recorded V/S: Last Vital Signs Temp 37.2 C 07/27/20 22:05 Pulse 116 H 07/27/20 22:05 Resp 18 07/27/20 22:05 BP 120/82 07/27/20 22:05 Pulse Ox 100 07/27/20 22:05 - Orders/Labs/Meds Orders: Active Orders 24 hr Category Date Time Status CULTURE URINE [RM] Stat Lab 07/27/20 21:25 Received Sodium Chloride 0.9% [Normal Saline] 1,000 ml Med 07/27/20 21:30 Active IV ASDIRECTED Isolation [COMM] Routine Oth 07/27/20 21:21 Ordered Medication Orders Sodium Chloride (Normal Saline) 1,000 mls @ 999 mls/hr IV ASDIRECTED MARIO Last Admin: 07/27/20 21:50 Dose: 999 mls/hr Documented by: VERITO Labs: Laboratory Tests 07/27/20 07/27/20 07/27/20 Range/Units 21:25 21:25 21:30 WBC 4.3 (3.0-10.3) x10-3/uL RBC 4.26 (3.60-5.20) x10(6)uL Hgb 10.3 L (11.4-15.5) g/dL Hct 31.8 L (34.2-48.2) % MCV 74.8 L (76.7-100.5) fL MCH 24.1 (23.9-33.9) pg MCHC 32.2 (31.9-34.8) g/dL RDW 17.6 H (12.3-16.5) % Plt Count 237 (151-488) x10(3)uL MPV 8.7 (7.1-12.4) fL Neut % (Auto) 69.1 (30.8-76.2) % Lymph % (Auto) 22.4 (18.4-52.1) % [place] % (Auto) 7.2 (4.4-15.7) % Eos % (Auto) 0.8 (0.6-8.1) % Baso % (Auto) 0.5 (0.2-1.5) % Neut # (Auto) 3.0 (1.5-6.3) x10-3/uL Lymph # (Auto) 1.0 (1.0-4.4) x10-3/uL [place] # (Auto) 0.3 (0.3-1.0) x10-3/uL Eos # (Auto) 0.0 (0.0-0.8) x10-3/uL Baso # (Auto) 0.0 (0.0-0.1) x10-3/uL Urine Color Yellow (YELLOW) Urine Appearance Slightly cloudy (CLEAR) Urine pH 5.0 (5.0-6.5) Ur Specific [place] 1.020 (1.010-1.025) Urine Protein Negative (NEGATIVE) mg/dL Urine Glucose (UA) Normal (NORMAL) mg/dL Urine Ketones 15 H (NEGATIVE) mg/dL Urine Occult Blood Moderate H (NEGATIVE) Urine Nitrite Negative (NEGATIVE) Urine Bilirubin Negative (NEGATIVE) Urine Urobilinogen Normal (NEGATIVE) mg/dL Ur Leukocyte Esterase Large H (NEGATIVE) Urine RBC 5-10 H (0-5) Urine WBC 30-40 H (0-5) Ur Squamous Epith Cells Few H (NS,R,O) Urine Bacteria Moderate H (NS) SARS-CoV-2 RNA (HARJEET) Positive H (NEGATIVE) Meds: Medications Generic Name Dose Route Start Last Admin Trade Name Freq PRN Reason Stop Dose Admin Sodium Chloride 1,000 mls @ 999 mls/hr 07/27/20 21:30 07/27/20 21:50 Normal Saline IV 999 mls/hr ASDIRECTED MARIO Administration Discontinued Medications Generic Name Dose Route Start Last Admin Trade Name Freq PRN Reason Stop Dose Admin Azithromycin 500 mg 07/27/20 22:07 07/27/20 22:18 Zithromax PO 07/27/20 22:08 500 mg ONETIME ONE Administration Ceftriaxone Sodium 1 gm/ 50 mls @ 200 mls/hr 07/27/20 22:06 07/27/20 22:22 Sodium Chloride IV 07/27/20 22:20 200 mls/hr ONETIME ONE Administration - Re-Assessments/Exams Free Text/Narrative Re-Assessment/Exam: 07/27/20 22:37 HAS LABS AND UA DONE TREATED FOR UTI CULTURES DONE pt will follow up with [facility] physician Departure - Departure Time of Disposition: 10:45 Disposition: Home, Self-Care 01 Condition: Fair Clinical Impression: COVID-19 affecting in second trimester UTI (urinary tract infection) Qualifiers: Urinary tract infection type: acute cystitis - Discharge Information *PRESCRIPTION DRUG MONITORING PROGRAM REVIEWED*: Not Applicable *COPY OF PRESCRIPTION DRUG MONITORING REPORT IN PATIENT LILIA: Not Applicable Prescriptions: guaiFENesin [Mucinex] 600 mg PO BID #20 tab.er.12h Ascorbic Acid [Vitamin C] 1,000 mg PO DAILY #30 tablet Azithromycin [Zithromax] 500 mg PO DAILY #7 tab Instructions: and COVID-19, Urinary Tract Infection, Adult, [id number] Referrals: Elan Arteaga MD [Primary Care Provider] - Forms: ED Department Discharge Additional Instructions: 1) INCREASE FLUID INTAKE 2) MAKE APPOINTMENT TO SEE YOUR DOCTOR FOR FURTHER EVALUATION Sepsis Event Note (ED) - Focused Exam Vital Signs: Vital Signs Temp Pulse Resp BP Pulse Ox 07/27/20 22:05 37.2 C 116 H 18 120/82 100 - My Orders Last 24 Hours: My Active Orders 07/27/20 21:21 Isolation [COMM] Routine 07/27/20 21:25 CULTURE URINE [RM] Stat 07/27/20 21:30 Sodium Chloride 0.9% [Normal Saline] 1,000 ml IV ASDIRECTED - Assessment/Plan Last 24 Hours: My Active Orders 07/27/20 21:21 Isolation [COMM] Routine 07/27/20 21:25 CULTURE URINE [RM] Stat 07/27/20 21:30 Sodium Chloride 0.9% [Normal Saline] 1,000 ml IV ASDIRECTED
[2020-07-27] MEDS ORDERED: Sodium Chloride 0.9% 1,000 ML IV SCH (21:30)
[2020-07-27] MEDS ORDERED: cefTRIAXone 1 GM in Sodium Chloride 0.9% 50 ML IV ONE (22:06)
[2020-07-27] MEDS ORDERED: Azithromycin 500 MG Tab PO ONE (22:07)
[2020-07-28 06:01] VITALS: PULSE 88
[2020-07-28 06:36] VITALS: BP 95/40
== END 2020-07-27 23:15 | disposition home or self-care (01) ==
LOC: FB.ED 21:01
DX: O98.513 Other viral diseases complicating pregnancy, third trimester (principal); U07.1 COVID-19; O23.13 Infections of bladder in pregnancy, third trimester
CPT/HCPCS: 36415; 81001; 85025; 87086; 87088; 87186; 87635; 87804; 96365; 99284; A9270; J0696; J7030; U0002

== ENCOUNTER 2020-11-12 20:55 | Emergency (ER) | payer MEDICAID ==
--- NOTE | 2020-11-12 21:24 | EDM.PDOC ---
ED HPI GENERAL MEDICAL PROBLEM - General Stated Complaint: COVID SYMPTOMS Time Seen by Provider: 11/12/20 21:00 Source of Information: Reports: Patient History Limitations: Reports: No Limitations - History of Present Illness INITIAL COMMENTS - FREE TEXT/NARRATIVE: Patient presented to the ed ED because URI symptoms: cough, sore throat. there is no fever,chills, nausea,vomiting, diarrhea. She is worried because of a covid exposure with his cousin who tested positive today. 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 - Infectious Disease History Infectious Disease History: Reports: Chicken Pox, Other (See Below) Other Infectious Disease History: History of COVID positive. - Past Surgical History Head Surgeries/Procedures: Reports: None Female Surgical History: Reports: Section Neurological Surgical History: Reports: None Social & Family History - Family History Family Medical History: Unobtainable - Caffeine Use Caffeine Use: Reports: Coffee, Soda ED ROS GENERAL - Review of Systems Review Of Systems: See Below Constitutional: Reports: No Symptoms HEENT: Reports: No Symptoms, Throat Pain Respiratory: Reports: Cough Cardiovascular: Reports: No Symptoms Endocrine: Reports: No Symptoms GI/Abdominal: Reports: No Symptoms : Reports: No Symptoms Musculoskeletal: Reports: No Symptoms Skin: Reports: No Symptoms ED EXAM, GENERAL - Physical Exam Exam: See Below Exam Limited By: No Limitations General Appearance: Alert, No Apparent Distress Eye Exam: Bilateral Eye: PERRL Ears: Normal External Exam, Normal Canal Nose: Normal Inspection, Normal Mucosa, No Blood Throat/Mouth: Normal Inspection, Normal Lips, Normal Teeth Head: Atraumatic, Normocephalic Neck: Normal Inspection, Supple, Non-Tender, Full Range of Motion Respiratory/Chest: No Respiratory Distress, Lungs Clear, Normal Breath Sounds, No Accessory Muscle Use, Chest Non-Tender Cardiovascular: Normal Peripheral Pulses, Regular Rate, Rhythm, No Edema, No Gallop GI/Abdominal: Normal Bowel Sounds, Soft, Non-Tender, No Organomegaly Back Exam: Normal Inspection, Full Range of Motion Extremities: Normal Inspection, Normal Range of Motion, Non-Tender Neurological: Alert, Oriented Course - Vital Signs Text/Narrative:: Covid test-pending Last Recorded V/S: Last Vital Signs Temp 36.2 C 11/12/20 21:00 Pulse 112 H 11/12/20 21:00 Resp 18 11/12/20 21:00 BP 137/73 11/12/20 21:00 Pulse Ox 100 11/12/20 21:00 - Orders/Labs/Meds Orders: Active Orders 24 hr Category Date Time Status CORONAVIRUS (COVID19) [facility] Routine Lab 11/12/20 21:30 Received Departure - Departure Time of Disposition: 21:50 Disposition: Home, Self-Care 01 Condition: Good Clinical Impression: Exposure to COVID-19 virus - Discharge Information Instructions: 3 [place] Steps to Take While Waiting for Your COVID-19 Test Result - CDC Referrals: PCP,None [Primary Care Provider] - Forms: ED Department Discharge Additional Instructions: Please read discharge instructions on covid 19 exposure and testing while waiting for result We will call you as soon as we have the result - My Orders Last 24 Hours: My Active Orders 11/12/20 21:30 CORONAVIRUS (COVID19) [facility] Routine - Assessment/Plan Last 24 Hours: My Active Orders 11/12/20 21:30 CORONAVIRUS (COVID19) [facility] Routine
[2020-11-13 01:35] VITALS: BP 137/73; PULSE 112
[2020-11-14 18:42] LABS: CORNONAVIRUS (COVID19) CSH-NRL Negative (Negative)
== END 2020-11-12 21:27 | disposition home or self-care (01) ==
LOC: FB.ED 20:55
DX: Z20.822 Contact with and (suspected) exposure to COVID-19 (principal)
CPT/HCPCS: 99283; U0003

== ENCOUNTER 2023-02-21 17:08 | Emergency (ER) | payer SELFPAY ==
[2023-02-21 18:43] LABS: INFLUENZA A NAA NEGATIVE (NEGATIVE); INFLUENZA B NAA NEGATIVE (NEGATIVE); RESPIRATORY SYNCYTIAL VIR NAA NEGATIVE (NEGATIVE)
[2023-02-21 18:56] LABS: CORONAVIRUS COVID-19 NAA POSITIVE (NEGATIVE)
[2023-02-21 20:59] VITALS: BP 135/54; PULSE 98
== END 2023-02-21 19:45 | disposition home or self-care (01) ==
LOC: FB.ED 17:08
DX: U07.1 COVID-19 (principal); J02.0 Streptococcal pharyngitis; Z86.16 Personal history of COVID-19
CPT/HCPCS: 0241U; 87651; 99283

== ENCOUNTER 2023-05-06 16:39 | Emergency (ER) | payer SELFPAY ==
[2023-05-06] MEDS ORDERED: Ondansetron 4 MG Tab.DIS PO ONE (16:40)
[2023-05-06] MEDS ORDERED: Sodium Chloride 0.9% 10 ML Syringe FLUSH PRN (17:18)
[2023-05-06] MEDS ORDERED: Ondansetron 4 MG/2 ML SDV IVPUSH ONE (17:18)
[2023-05-06] MEDS ORDERED: Sodium Chloride 0.9% 1,000 ML IV ONE (17:25)
[2023-05-06 17:32] LABS: BASOPHILS ABSOLUTE AUTO 0.1 x10-3/uL (0.0-0.1); BASOPHILS PERCENT AUTO 0.9 % (0.2-1.5); EOSINOPHILS ABSOLUTE AUTO 0.2 x10-3/uL (0.0-0.8); EOSINOPHILS PERCENT AUTO 3.6 % (0.6-8.1); HEMATOCRIT 34.6 % (34.2-48.2); LYMPHOCYTES ABSOLUTE AUTO 1.7 x10-3/uL (1.0-4.4); LYMPHOCYTES PERCENT AUTO 24.1 % (18.4-52.1); MEAN CORPUSCULAR HEMOGLOBIN 21.7 pg (23.9-33.9); MEAN CORPUSCULAR HGB CONC 31.7 g/dL (31.9-34.8); MEAN CORPUSCULAR VOLUME 68.6 fL (76.7-100.5); MEAN PLATELET VOLUME 9.6 fL (7.1-12.4); MONOCYTES ABSOLUTE AUTO 0.5 x10-3/uL (0.3-1.0); MONOCYTES PERCENT AUTO 7.1 % (4.4-15.7); NEUTROPHILS ABSOLUTE AUTO 4.5 x10-3/uL (1.5-6.3); NEUTROPHILS PERCENT AUTO 64.3 % (30.8-76.2); PLATELET COUNT,PLT 340 x10(3)uL (151-488); RED BLOOD CELL COUNT 5.05 x10(6)uL (3.60-5.20); RED CELL DISTRIBUTION WIDTH 17.4 % (12.3-16.5)
[2023-05-06 17:36] LABS: BLOOD UREA NITROGEN,BUN 8 mg/dL (7-18); BUN/CREATININE RATIO 11.4 (9-20); CALCIUM 9.5 mg/dL (8.6-10.2); CARBON DIOXIDE,CO2 28 mmol/L (21-32); CHLORIDE,CL 101 mmol/L (100-110); CREATININE 0.7 mg/dL (0.55-1.02); EST CRCL DRUG DOSING (CG) 91.25 mL/min; ESTIMATED GFR 118 mL/min (>60); GLUCOSE RANDOM 109 mg/dL (80-116); POTASSIUM,K 3.3 mmol/L (3.5-5.3); SODIUM,NA 137 mmol/L (135-145)
[2023-05-06 17:42] LABS: A/G RATIO 0.7; ALANINE AMINOTRANSFERASE,ALT 24 U/L (12-36); ALBUMIN 3.7 g/dL (3.5-5.2); ALKALINE PHOSPHATASE 100 IU/L (56-112); ASPARTATE AMNIOTRANSFERASE,AST 18 IU/L (5-25); BILIRUBIN TOTAL 0.2 mg/dL (0.1-1.3); PROTEIN TOTAL,TP 9.1 g/dL (6.0-8.0)
[2023-05-06 17:45] LABS: C-REACTIVE PROTEIN < 0.05 mg/dL (<0.33); TROPONIN I < 4.0 pg/mL (4.0-60.3)
[2023-05-06] MEDS ORDERED: Metoclopramide 10 MG/2 ML SDV IVPUSH ONE (19:01)
[2023-05-06 20:32] VITALS: BP 111/62; PULSE 80
== END 2023-05-06 20:30 | disposition home or self-care (01) ==
LOC: FB.ED 16:39
DX: R07.89 Other chest pain (principal); R42 Dizziness and giddiness; E86.0 Dehydration; R11.2 Nausea with vomiting, unspecified
CPT/HCPCS: 36415; 80053; 81025; 83735; 84484; 85025; 85379; 86140; 93005; 96361; 96374; 96375; 99285; J2405; J2765; J3490; J7030; Q0162

== ENCOUNTER 2023-11-23 15:00 | Emergency (ER) | payer SELFPAY ==
[2023-11-23 15:07] VITALS: BP 105/74; PULSE 98
[2023-11-23] MEDS: Ketorolac 30 MG/ML SDV IM ONE (16:31)
== END 2023-11-23 17:12 | disposition home or self-care (01) ==
LOC: FB.ED 15:00
DX: S93.402A Sprain of unspecified ligament of left ankle, initial encounter (principal); Z86.16 Personal history of COVID-19; W10.1XXA Fall (on)(from) sidewalk curb, initial encounter
CPT/HCPCS: 73610; 96372; 99283; J1885

== ENCOUNTER 2024-08-28 22:55 | Emergency (ER) | payer SELFPAY ==
[2024-08-28] MEDS: Ketorolac 30 MG/ML SDV IM ONE (23:53)
[2024-08-28] MEDS: Diazepam 5 MG Tab PO ONE (23:54)
[2024-08-29 01:20] VITALS: BP 124/82; PULSE 78
== END 2024-08-29 01:19 | disposition home or self-care (01) ==
LOC: FB.ED 22:55
DX: S30.0XXA Contusion of lower back and pelvis, initial encounter (principal); Z86.16 Personal history of COVID-19; Z79.899 Other long term (current) drug therapy; W00.0XXA Fall on same level due to ice and snow, initial encounter
CPT/HCPCS: 72131; 72192; 96372; 99284; A9270; J1885

== ENCOUNTER 2025-03-26 19:28 | Emergency (ER) | payer SELFPAY ==
[2025-03-26] MEDS: Ketorolac 30 MG/ML SDV IM ONE (20:04)
[2025-03-26 20:07] VITALS: BP 125/81; PULSE 101
== END 2025-03-26 20:10 | disposition home or self-care (01) ==
LOC: FB.ED 19:28
DX: M54.41 Lumbago with sciatica, right side (principal); M54.42 Lumbago with sciatica, left side; Z86.16 Personal history of COVID-19; Z79.899 Other long term (current) drug therapy
CPT/HCPCS: 96372; 99283; A9270-GY; J1885

== ENCOUNTER 2025-05-18 16:30 | Emergency (ER) | payer SELFPAY ==
[2025-05-18] MEDS: Amoxicillin/Clavulanate K 875-125 MG Tab PO STA (16:52)
[2025-05-18] MEDS: Lidocaine 2% Viscous Solution 15 ML UD PO ONE (16:53)
[2025-05-18 17:46] VITALS: BP 133/87; PULSE 90
== END 2025-05-18 17:00 | disposition home or self-care (01) ==
LOC: FB.ED 16:30
DX: K04.7 Periapical abscess without sinus (principal); K05.10 Chronic gingivitis, plaque induced; Z79.899 Other long term (current) drug therapy; Z86.16 Personal history of COVID-19
CPT/HCPCS: 99282; 99283; A9270-GY